=== PATIENT | female | born 1955 | race American Indian/Alaskan Native ===

== ENCOUNTER 2016-03-24 08:05 | Day surgery (SDC) | payer MEDICARE ==
--- NOTE | 2016-03-24 09:30 | Anesthesia Consultation ---
Anesthesia Consult and Med Hx Date of service: 03/24/16 - Airway Anesthetic Teeth Evaluation: Good ROM Head & Neck: Adequate Mental/Hyoid Distance: Adequate Mallampati Class: Class II Intubation Access Assessment: Good - Pulmonary Exam CTA: Yes - Cardiac Exam Cardiac Exam: RRR - Pre-Operative Health Status ASA Pre-Surgery Classification: ASA2, ASA3 - Pulmonary Hx Smoking: Yes (QUIT 5 YRS AGO) Hx Asthma: Yes COPD: Yes Hx Pneumonia: Yes Hx Sleep Apnea: Yes - Cardiovascular System Hx Hypertension: Yes Hx Coronary Artery Disease: No Hx Heart Attack/AMI: No Hx Angina: No Hx Percutaneous Transluminal Coronary Angioplasty (PTCA): No Hx Pacemaker: No Hx Internal Defibrillator: No Hx Valvular Heart Disease: No Hx Heart Murmur: No Hx Peripheral Vascular Disease: No - Central Nervous System CVA: Yes (1999) Hx Psychiatric Problems: Yes - Endocrine Hx End Stage Renal Disease: No - Other Systems Hx Cancer: No
[2016-03-24] MEDS ORDERED: TETRACAINE 0.5% OS PRN (09:41)
[2016-03-24] MEDS: AK-Dilate OS SCH ×3 (09:51→10:03)
[2016-03-24] MEDS: MYDRIACYL OS SCH ×3 (09:51→10:02)
[2016-03-24] MEDS: VIGAMOX OS SCH ×3 (09:51→10:02)
[2016-03-24] MEDS ORDERED: VERSED ONE (11:57)
[2016-03-24] MEDS ORDERED: SUBLIMAZE ONE (11:57)
[2016-03-24] MEDS ORDERED: ADRENALINE P/F IV ONE (12:28)
--- NOTE | 2016-03-24 12:34 | Operative Report ---
Operative Report Operative Report: PATIENT'S NAME: DATE OF : DATE OF SURGERY: 03/24/2016 PREOPERATIVE DIAGNOSIS: Cataract left eye POSTOPERATIVE DIAGNOSIS: Same OPERATIVE PROCEDURE: Phacoemulsification with intraocular lens implantation, left eye SURGEON: Ame Valentin M.D. RADIOGRAPHY TECHNICIAN SURGEON: Nicole Lens: [id number] 17.0 D ANESTHESIA: Monitored anesthesia care in combination with topical and intracameral anesthesia because of the established specific risk of reflux, arrhythmias, or anxiety attacks associated with ocular manipulation, as well as the difficulty of the rn primary care to manage such potentially catastrophic events while simultaneously attempting to complete the surgical procedure and was deemed necessary for the patient's safety to have an Golf Tournament Consultant present during the procedure whenever possible. An Golf Tournament Consultant was utilized to regulate the intravenous sedation of the patient so the patient was cooperative yet not asleep in order for the patient to successfully maintain fixation of the eye on the operating light of the microscope. COMPLICATIONS: No surgical complications No blood loss. ALLERGIES: MOY inhibitor is instrument; gabapentin PROGNOSIS: Excellent INDICATIONS FOR SURGERY: The patient is undergoing surgery in the hopes of eliminating or improving these visual difficulties. PROCEDURE: After arriving at the surgery center, the patient was given topical anesthetic and dilating drops, as noted in the record. The patient was then taken into the operating room and given more anesthetic drops. The eyelids, lashes, and lid margins were scrubbed with Betadine solution, and the patient was draped. The Nurse Golf Tournament Consultant administered IV sedation and monitored the patient during the procedure. The eye was then fixated with a 0.12, and a stab incision was made in the peripheral clear cornea into the anterior chamber. This was made on my left side. Viscoelastic was next used to fill the anterior chamber. The eye was once again fixated with the 0.12 forceps and a keratome was used make an incision in clear cornea peripherally on my right hand side temporally. The capsule forceps were used to open the central anterior capsule and then make a continuous round capsulotomy. Hydrodissection was carried out utilizing a cannula and balanced salt solution to delineate the cortical material from the capsule and the nucleus from the cortical material. The phaco tip was introduced into the eye and used to remove the anterior cortical material in the area of the capsulotomy. Then the phaco tip was buried into the nucleus, and a chopping instrument was introduced into the eye and used to provide countertraction in the nucleus between this instrument and the phaco tip fracturing the nucleus. This procedure was repeated multiple times, providing multiple small segments of the lens, and then the phaco tip was used to remove each of these segments. An I/A tip was then used to remove the remaining cortex. The anterior chamber was refilled with viscoelastic. An one-piece, acrylic intraocular lens was then placed into an inserting cartridge. The tip of the inserting cartridge was introduced into the keratome incision and into the anterior chamber. The implant was gently advanced through the cartridge and into the eye, where it unfolded, and both haptics were placed in the capsular bag, where it centered nicely and appeared to be well fixated. After placement of the intraocular lens, the I~and~A handpiece was placed back into the eye and used to remove the viscoelastic, including viscoelastic that was behind the optic of the intraocular lens. The anterior chamber was then filled with balanced salt solution, and hydration of the wound was used to cause swelling of the wound and more appropriate watertight closure. When the wound was found to be firm, the patient was asked to comment on how bright the light was. If there was no light perception at all or if the light was substantially dimmer than during the rest of the surgery, the amount of fluid in the eye was decompressed to lower the intraocular pressure until the patient could see the bright light again. This was done to avoid any damage or decreased blood flow to the optic nerve. MEDICATIONS APPLIED AT END OF SURGERY: One drop of Pred Forte and Vigamox The patient was given a shield to wear at night and was instructed not to rub or push on the eye. DISCHARGE SUMMARY: The patient was released in stable condition. The patient and those with the patient were given a written sheet of postoperative instructions and counseling on any abnormal laboratory studies. The patient is to see us tomorrow for follow-up in the office and is to call immediately for any difficulties. Ame Valentin M.D. Date
--- NOTE | 2016-03-24 12:35 | Short Stay Summary ---
Short Stay Documentation Date of service: 03/24/16 - History H&P: obtained from office - Allergies and Medications Current Medications: Allergies MOY Inhibitors Allergy (Verified 06/13/13 02:30) Angioedema azithromycin [From Zithromax Z-Nick] Allergy (Verified 11/24/13 15:23) Angioedema gabapentin Adverse Reaction (Verified 10/15/14 20:40) Unknown Home Medications Medication Instructions Recorded Confirmed Last Taken Type Insulin Detemir [Levemir Flexpen] 70 units SUB-Q HS 08/31/13 03/24/16 03/23/16 21:00 History Carvedilol [Coreg] 25 mg PO Q12HR #60 tablet 10/16/14 03/24/16 03/24/16 07:00 Rx Aspirin [Aspirin BABY CHEW TAB] 81 mg PO QDAY tab.chew 01/23/15 03/24/16 11:00 Rx Ipratropium/Albuterol Sulfate 1 ampul IH TIDRT ampul.neb 01/23/15 03/21/1611/27 Rx [Duoneb 0.5 mg-3 mg/3 ml Soln] Potassium Chloride [K-Dur] 20 meq PO QDAY tablet 01/23/15 03/21/16 03/21/16 Rx Torsemide [Demadex] 60 mg PO DAILY tablet 01/23/15 03/24/16 03/23/16 21:00 Rx amLODIPine [Norvasc] 10 mg PO DAILY tablet 01/23/15 03/24/16 03/24/16 07:00 Rx oxyCODONE /ACETAMINOPHEN [Percocet 1 tab PO Q6H PRN #75 tablet 01/23/1503/23/16 19:00 Rx 5/325 mg] Atorvastatin Calcium [Lipitor] 40 mg PO DAILY 03/21/16 03/24/16 03/23/16 11:00 History Effexor 75 mg PO DAILY 03/21/16 03/24/16 03/24/16 07:00 History Insulin Aspart Prot/Aspart 50 units SUB-Q BIDDIAB 03/21/16 03/24/16 03/23/16 21: 00 History [NovoLOG Mix 70/30 VIAL] Meclizine [Antivert] 25 mg PO PRN PRN 03/21/16 03/21/16 2 Weeks Ago History Active Medications Moxifloxacin HCl (Vigamox) 1 drops OS Q5MIN [facility] Stop: 03/24/16 16:00 Last Admin: 03/24/16 10:02 Dose: 1 drops Phenylephrine HCl (Ak-Dilate) 1 drops OS Q5MIN [facility] Stop: 03/24/16 16:00 Last Admin: 03/24/16 10:03 Dose: 1 drops Prednisolone Acetate (Pred Forte 1%) 1 drops OS QID [facility] Tetracaine HCl (Tetracaine 0.5%) 1 drops OS Q5M PRN PRN Reason: Pain Stop: 03/24/16 23:59 Last Admin: 03/24/16 09:50 Dose: 1 drops Tropicamide (Mydriacyl) 1 drops OS Q5MIN [facility] Stop: 03/24/16 16:00 Last Admin: 03/24/16 10:02 Dose: 1 drops - Brief post op/procedure progress note Date of procedure: 03/24/16 Pre-op diagnosis: cataract left eye Post-op diagnosis: same Procedure: Phacoemulsification with intraocular lens insertion left eye Anesthesia: MAC Surgeon: MANUEL PRABHAKAR Estimated blood loss: none Pathology: none Condition: stable - Disposition Condition at discharge: Fair Disposition: DISCHARGED TO HOME OR SELFCARE - Discharge Diagnoses (1) Cataract Status: Acute
[2016-03-24 13:39] VITALS: BP 143/67
[2016-03-24] MEDS ORDERED: PRED FORTE 1% OS SCH (14:00)
== END 2016-03-24 13:56 | disposition home or self-care (01) ==
LOC: OR 08:05
DX: E11.36 Type 2 diabetes mellitus with diabetic cataract (principal); I11.0 Hypertensive heart disease with heart failure; J45.909 Unspecified asthma, uncomplicated; J44.9 Chronic obstructive pulmonary disease, unspecified; E78.00 Pure hypercholesterolemia, unspecified; E11.39 Type 2 diabetes mellitus with other diabetic ophthalmic complication; H40.9 Unspecified glaucoma; G47.30 Sleep apnea, unspecified; M19.019 Primary osteoarthritis, unspecified shoulder; M16.10 Unilateral primary osteoarthritis, unspecified hip; Z87.891 Personal history of nicotine dependence; Z87.01 Personal history of pneumonia (recurrent); Z86.73 Personal history of transient ischemic attack (TIA), and cerebral infarction without residual deficits; Z99.81 Dependence on supplemental oxygen
CPT/HCPCS: 66984; 82962; J0171; J2250; J3010; V2632

== ENCOUNTER 2016-07-16 15:10 | Inpatient (IN) | payer MEDICARE ==
[2016-07-16 16:15] LABS: Hemoglobin 9.8 gm/dl (10.1-14.3); Mean Corpuscular HGB Conc 31 % (30-34); Mean Corpuscular Hemoglobin 27 pg (28-32); Mean Corpuscular Volume 87 fl (79-97); Platelet Count 352 K/mm3 (140-440); Red Blood Count 3.66 M/mm3 (3.65-5.03); Red Cell Distribution Width 14.6 % (13.2-15.2)
[2016-07-16 16:28] LABS: Anion Gap 17 mmol/L; BUN/Creatinine Ratio 8.88; Blood Urea Nitrogen 8 mg/dL (7-17); Calcium 8.9 mg/dL (8.4-10.2); Carbon Dioxide 32 mmol/L (22-30); Chloride 96.9 mmol/L (98-107); Glucose 273 mg/dL (65-100); Potassium 4.1 mmol/L (3.6-5.0); Sodium 142 mmol/L (137-145); White Blood Count 26.2 K/mm3 (4.5-11.0)
--- NOTE | 2016-07-16 16:40 | Emergency Department Report ---
ED General Adult HPI - General Chief complaint: Chest Pain Stated complaint: CHEST PAIN Time Seen by Provider: 07/16/16 16:36 Source: patient, EMS, RN notes reviewed, old records reviewed Mode of arrival: Stretcher Limitations: Physical Limitation - History of Present Illness Initial comments: This is a 61-year-old female. She is previously unknown to me. Primary care Dr.: Benji Cardiology: Dr Wright Pulmonology: Anne DANIELS Past medical history includes CHF, hypertension, COPD, diabetes, obstructive sleep apnea, on home oxygen, on CPAP. Ejection fraction 55-60% on recent echocardiogram. The patient presents to the ER with chest pain. The chest pain is central. The patient reports that it radiates down the right arm. It is described as pressure-like in nature. Patient admits to chronic cough, chronic reconstruction. There is no leg pain. Chronic leg swelling which is not new, worsening or different. No recent trips greater than 4 hours. No recent hospitalizations. The patient endorses that she essentially had an unintentional weight loss. -: Gradual Location: chest Radiation: extremity Severity scale (0 -10): 7 Quality: aching Consistency: intermittent Improves with: rest Worsens with: movement Associated Symptoms: chest pain, cough, headaches, weakness - Related Data Home Medications Medication Instructions Recorded Confirmed Last Taken Latanoprost 1 drop OU Q4H 05/09/16 05/09/16 Unknown Nepafenac [Ilevro 0.3%] 1 drop OD Q4H 05/09/16 05/09/16 Unknown Previous Rx's Medication Instructions Recorded Last Taken Type Acetaminophen [Acetaminophen TAB] 650 mg PO Q4H PRN #10 tablet 05/11/16 Unknown Rx Amoxicillin/K Clav Tab [Augmentin 1 each PO Q12HR #10 tablet 05/11/16 Unknown Rx 875MG TAB] Arformoterol Nebu [Brovana Nebu] 15 mcg IH Q12HRT #30 unit 05/11/16 Unknown Rx Aspirin [Aspirin BABY CHEW TAB] 81 mg PO QDAY #30 tab.chew 05/11/16 05/06/16 Rx AtorvaSTATin [Lipitor] 40 mg PO DAILY #30 tablet 05/11/16 Unknown Rx Budesonide [Pulmicort Respules] 1 mg IH Q12HRT #30 nebu 05/11/16 Unknown Rx Carvedilol [Coreg] 25 mg PO Q12HR #60 tablet 05/11/16 Unknown Rx Fluconazole [Diflucan TAB] 100 mg PO ONCE PRN #2 tablet 05/11/16 Unknown Rx HYDROcodone/APAP 10-325 [[place] 1 each PO Q6H PRN #30 tablet 05/11/16 Unknown Rx 10-325 mg TAB] Insulin Detemir [Levemir] 40 units SUB-Q QAMDIAB #30 day 05/11/16 Unknown Rx Insulin Detemir [Levemir] 45 units SUB-Q QHS #30 day 05/11/16 Unknown Rx Ipratropium/Albuterol Sulfate 1 ampul IH Q6HRT #30 ampul.neb 05/11/16 Unknown Rx [Duoneb 0.5 mg-3 mg/3 ml Soln] Ipratropium/Albuterol Sulfate 1 ampul IH TIDRT #30 ampul.neb 05/11/16 05/06/16 Rx [Duoneb 0.5 mg-3 mg/3 ml Soln] Lidocaine Topical 5% [Xylocaine 1 applic TP TID PRN #1 tube 05/11/16 Unknown Rx Topical 5%] Moxifloxacin HCl [Vigamox 0.5%] 1 drop OD Q4H #1 05/11/16 Unknown Rx Nepafenac 0.1% [Nevanac] 1 drops OD Q4H bottle 05/11/16 Unknown Rx Pregabalin [Lyrica] 50 mg PO BID #30 capsule 05/11/16 Unknown Rx Torsemide [Demadex] 60 mg PO QAM tablet 05/11/16 Unknown Rx Venlafaxine [Effexor] 75 mg PO DAILY #30 tablet 05/11/16 Unknown Rx Zolpidem [Ambien] 5 mg PO QHS PRN #30 tablet 05/11/16 Unknown Rx amLODIPine [Norvasc] 10 mg PO DAILY #30 tablet 05/11/16 Unknown Rx guaiFENesin DM [Robitussin Dm] 10 ml PO Q6H PRN #30 oral.liqd 05/11/16 Unknown Rx methylPREDNISolone [Medrol Dose 1 mg PO DAILY #1 pack 05/11/16 Unknown Rx Nick] oxyCODONE /ACETAMINOPHEN [Percocet 1 tab PO Q6H PRN #30 tablet 05/11/16 Unknown Rx 5/325 mg] prednisoLONE ACETATE 1% [Pred 1 drops OD QID bottle 05/11/16 Unknown Rx Forte 1%] Allergies Allergy/AdvReac Type Severity Reaction Status Date / Time MOY Inhibitors Allergy Angioedema Verified 04/20/16 16:35 azithromycin Allergy Angioedema Verified 04/20/16 16:35 [From Zithromax Z-Nick] gabapentin AdvReac Unknown Verified 04/20/16 16:35 ED Review of Systems ROS: Stated complaint: CHEST PAIN Other details as noted in HPI Constitutional: malaise, weakness Eyes: denies: vision change Respiratory: shortness of breath, wheezing Cardiovascular: chest pain, dyspnea on exertion Gastrointestinal: denies: vomiting Genitourinary: as per HPI Musculoskeletal: arthralgia, myalgia Skin: denies: lesions Neurological: weakness ED Past Medical Hx - Past Medical History Hx Hypertension: Yes Hx Heart Attack/AMI: No Hx Congestive Heart Failure: Yes Hx Diabetes: Yes Hx Deep Vein Thrombosis: No Hx Pulmonary Embolism: No Hx Arthritis: Yes (shoulders, hips, arms) Hx Kidney Stones: Yes Hx Asthma: Yes Hx COPD: Yes Hx Tuberculosis: Yes (at age 10) Hx HIV: No Additional medical history: VERTIGO/ /MENIERES DISEASE / SLEEP APNEA. neuropathy. on home o2, 2L via nasal cannula - Surgical History Hx Coronary Stent: No Hx Pacemaker: No Hx Internal Defibrillator: No Additional Surgical History: Renal stent - Social History Smoking Status: Never Smoker Substance Use Type: None - Medications Home Medications: Home Medications Medication Instructions Recorded Confirmed Last Taken Type Latanoprost 1 drop OU Q4H 05/09/16 05/09/16 Unknown History Nepafenac [Ilevro 0.3%] 1 drop OD Q4H 05/09/16 05/09/16 Unknown History Acetaminophen [Acetaminophen TAB] 650 mg PO Q4H PRN #10 tablet 05/11/16 Unknown Rx Amoxicillin/K Clav Tab [Augmentin 1 each PO Q12HR #10 tablet 05/11/16 Unknown Rx 875MG TAB] Arformoterol Nebu [Brovana Nebu] 15 mcg IH Q12HRT #30 unit 05/11/16 Unknown Rx Aspirin [Aspirin BABY CHEW TAB] 81 mg PO QDAY #30 tab.chew 05/11/16 05/07/16 Rx AtorvaSTATin [Lipitor] 40 mg PO DAILY #30 tablet 05/11/16 Unknown Rx Budesonide [Pulmicort Respules] 1 mg IH Q12HRT #30 nebu 05/11/16 Unknown Rx Carvedilol [Coreg] 25 mg PO Q12HR #60 tablet 05/11/16 Unknown Rx Fluconazole [Diflucan TAB] 100 mg PO ONCE PRN #2 tablet 05/11/16 Unknown Rx HYDROcodone/APAP 10-325 [[place] 1 each PO Q6H PRN #30 tablet 05/11/16 Unknown Rx 10-325 mg TAB] Insulin Detemir [Levemir] 40 units SUB-Q QAMDIAB #30 day 05/11/16 Unknown Rx Insulin Detemir [Levemir] 45 units SUB-Q QHS #30 day 05/11/16 Unknown Rx Ipratropium/Albuterol Sulfate 1 ampul IH Q6HRT #30 ampul.neb 05/11/16 Unknown Rx [Duoneb 0.5 mg-3 mg/3 ml Soln] Ipratropium/Albuterol Sulfate 1 ampul IH TIDRT #30 ampul.neb 05/11/16 05/07/16 05/06/16 Rx [Duoneb 0.5 mg-3 mg/3 ml Soln] Lidocaine Topical 5% [Xylocaine 1 applic TP TID PRN #1 tube 05/11/16 Unknown Rx Topical 5%] Moxifloxacin HCl [Vigamox 0.5%] 1 drop OD Q4H #1 05/11/16 05/09/16 Unknown Rx Nepafenac 0.1% [Nevanac] 1 drops OD Q4H bottle 05/11/16 Unknown Rx Pregabalin [Lyrica] 50 mg PO BID #30 capsule 05/11/16 Unknown Rx Torsemide [Demadex] 60 mg PO QAM tablet 05/11/16 Unknown Rx Venlafaxine [Effexor] 75 mg PO DAILY #30 tablet 05/11/16 Unknown Rx Zolpidem [Ambien] 5 mg PO QHS PRN #30 tablet 05/11/16 Unknown Rx amLODIPine [Norvasc] 10 mg PO DAILY #30 tablet 05/11/16 Unknown Rx guaiFENesin DM [Robitussin Dm] 10 ml PO Q6H PRN #30 oral.liqd 05/11/16 Unknown Rx methylPREDNISolone [Medrol Dose 1 mg PO DAILY #1 pack 05/11/16 Unknown Rx Nick] oxyCODONE /ACETAMINOPHEN [Percocet 1 tab PO Q6H PRN #30 tablet 05/11/16 Unknown Rx 5/325 mg] prednisoLONE ACETATE 1% [Pred 1 drops OD QID bottle 05/11/16 Unknown Rx Forte 1%] ED Physical Exam - General Limitations: No Limitations General appearance: alert, in no apparent distress, obese - Head Head exam: Present: atraumatic, normocephalic - Eye Eye exam: Present: normal appearance, EOMI. Absent: nystagmus - ENT ENT exam: Present: normal exam, normal orophraynx, mucous membranes moist, normal external ear exam - Neck Neck exam: Present: normal inspection, full ROM. Absent: tenderness, meningismus - Respiratory Respiratory exam: Present: rhonchi. Absent: respiratory distress - Cardiovascular Cardiovascular Exam: Present: normal rhythm, tachycardia, normal heart sounds. Absent: systolic murmur, diastolic murmur, rubs, gallop - GI/Abdominal GI/Abdominal exam: Present: soft, normal bowel sounds. Absent: distended, tenderness, guarding, rebound, rigid, pulsatile mass - Extremities Exam Extremities exam: Present: normal inspection, normal capillary refill, pedal edema. Absent: calf tenderness - Back Exam Back exam: Present: normal inspection, full ROM. Absent: tenderness, CVA tenderness (R), CVA tenderness (L), muscle spasm, paraspinal tenderness, vertebral tenderness - Neurological Exam Neurological exam: Present: alert, oriented X3, other (Extraocular movements intact. Tongue midline. No facial droop. Facial sensation intact to light touch in the V1, V2, V3 distribution bilaterally. 5 and 5 strength in 4 extremities.. Sensation is intact to light touch in 4 extremities.). Absent: motor sensory deficit - Psychiatric Psychiatric exam: Present: normal affect, normal mood - Skin Skin exam: Present: warm, dry, intact, normal color. Absent: rash ED Course Vital Signs 07/16/16 07/16/16 07/16/16 15:33 19:21 19:39 Temperature 98.1 F Pulse Rate 109 H Pulse Rate [ 87 Anterior Bilateral] Respiratory 22 20 Rate Respiratory 18 Rate [Anterior Bilateral] Blood Pressure 121/65 Blood Pressure 121/65 [Left] O2 Sat by Pulse 95 97 98 Oximetry 07/16/16 07/16/16 07/16/16 20:00 21:31 22:00 Temperature 97.9 F Pulse Rate 94 H Pulse Rate [ 90 Anterior Bilateral] Respiratory 16 18 Rate Respiratory 18 Rate [Anterior Bilateral] Blood Pressure Blood Pressure 130/96 [Left] O2 Sat by Pulse 98 Oximetry - Reevaluation(s) Reevaluation #1: 07/16/16 18:17 differential diagnosis: COPD exacerbation, pneumonia, congestive heart failure, pulmonary hypertension, acute coronary syndrome, pleural effusion , pericardial effusion, pericarditis Assessment and plan: 61-year-old female with chest pain, chronic cough, chronic shortness of breath, no pulmonary embolus or DVT risk factors, low risk by well' s criteria, x-ray suggests pneumonia. Case is presented to the Hospital physician, Dr. Gray who accepts the patient to his service. He is going to order antibiotics. The patient is treated empirically with albuterol, Atrovent , steroids, ketorolac for pain. ED Medical Decision Making - Lab Data Result diagrams: 07/16/16 15:58 07/16/16 15:58 Vital Signs 07/16/16 15:33 Temperature 98.1 F Pulse Rate 109 H Respiratory 22 Rate Blood Pressure 121/65 Blood Pressure 121/65 [Left] O2 Sat by Pulse 95 Oximetry Lab Results 07/16/16 07/16/16 07/16/16 Range/Units 15:58 15:58 17:02 WBC 26.2 H (4.5-11.0) K/mm3 RBC 3.66 (3.65-5.03) M/mm3 Hgb 9.8 L (10.1-14.3) gm/dl Hct 32.0 (30.3-42.9) % MCV 87 (79-97) fl MCH 27 L (28-32) pg MCHC 31 (30-34) % RDW 14.6 (13.2-15.2) % Plt Count 352 (140-440) K/mm3 Add Manual Diff Complete Total Counted 200 Seg Neuts % (Manual) 75.5 H (40.0-70.0) % Band Neutrophils % 11.0 % Lymphocytes % (Manual) 7.5 L (13.4-35.0) % Reactive Lymphs % (Man) 0 % Monocytes % (Manual) 4.5 (0.0-7.3) % Eosinophils % (Manual) 1.0 (0.0-4.3) % Basophils % (Manual) 0.5 (0.0-1.8) % Metamyelocytes % 0 % Myelocytes % 0 % Promyelocytes % 0 % Blast Cells % 0 % Nucleated RBC % Not Reportable Seg Neutrophils # Man 19.8 H (1.8-7.7) K/mm3 Band Neutrophils # 2.9 K/mm3 Lymphocytes # (Manual) 2.0 (1.2-5.4) K/mm3 Abs React Lymphs (Man) 0.0 K/mm3 Monocytes # (Manual) 1.2 H (0.0-0.8) K/mm3 Eosinophils # (Manual) 0.3 (0.0-0.4) K/mm3 Basophils # (Manual) 0.1 (0.0-0.1) K/mm3 Metamyelocytes # 0.0 K/mm3 Myelocytes # 0.0 K/mm3 Promyelocytes # 0.0 K/mm3 Blast Cells # 0.0 K/mm3 WBC Morphology Not Reportable Hypersegmented Neuts Not Reportable Hyposegmented Neuts Not Reportable Hypogranular Neuts Not Reportable Smudge Cells Not Reportable Toxic Granulation Not Reportable Toxic Vacuolation Not Reportable Dohle Bodies Not Reportable Pelger-Huet Anomaly Not Reportable Jasmyn Rods Not Reportable Platelet Estimate Cons Clumped Platelets Not Reportable Plt Clumps, EDTA Not Reportable Large Platelets Not Reportable Giant Platelets Few Platelet Satelliting Not Reportable Plt Morphology Comment Not Reportable RBC Morphology Not Reportable Dimorphic RBCs Not Reportable Polychromasia Not Reportable Hypochromasia 1+ Poikilocytosis Not Reportable Anisocytosis 1+ Microcytosis Not Reportable Macrocytosis Not Reportable Spherocytes Not Reportable Pappenheimer Bodies Not Reportable Sickle Cells Not Reportable Target Cells Not Reportable Tear Drop Cells Not Reportable Ovalocytes 1+ Helmet Cells Not Reportable Zaragoza-Pelzer Bodies Not Reportable Dixon Rings Not Reportable Mariela Cells Not Reportable Bite Cells Not Reportable Crenated Cell Not Reportable Elliptocytes Not Reportable Acanthocytes (Spur) Not Reportable Rouleaux Not Reportable Hemoglobin C Crystals Not Reportable Schistocytes Not Reportable Malaria parasites Not Reportable Papito Bodies Not Reportable Hem Pathologist Commnt No PT (12.2-14.9) Sec. INR (0.87-1.13) Sodium 142 (137-145) mmol/L Potassium 4.1 (3.6-5.0) mmol/L Chloride 96.9 L (98-107) mmol/L Carbon Dioxide 32 H (22-30) mmol/L Anion Gap 17 mmol/L BUN 8 (7-17) mg/dL Creatinine 0.9 (0.7-1.2) mg/dL Estimated GFR > 60 ml/min BUN/Creatinine Ratio 8.88 % Glucose 273 H (65-100) mg/dL Calcium 8.9 (8.4-10.2) mg/dL Troponin T < 0.010 < 0.010 (0.00-0.029) ng/mL NT-Pro-B Natriuret Pep (0-900) pg/mL 07/16/16 07/16/16 Range/Units 17:02 17:02 WBC (4.5-11.0) K/mm3 RBC (3.65-5.03) M/mm3 Hgb (10.1-14.3) gm/dl Hct (30.3-42.9) % MCV (79-97) fl MCH (28-32) pg MCHC (30-34) % RDW (13.2-15.2) % Plt Count (140-440) K/mm3 Add Manual Diff Total Counted Seg Neuts % (Manual) (40.0-70.0) % Band Neutrophils % % Lymphocytes % (Manual) (13.4-35.0) % Reactive Lymphs % (Man) % Monocytes % (Manual) (0.0-7.3) % Eosinophils % (Manual) (0.0-4.3) % Basophils % (Manual) (0.0-1.8) % Metamyelocytes % % Myelocytes % % Promyelocytes % % Blast Cells % % Nucleated RBC % Seg Neutrophils # Man (1.8-7.7) K/mm3 Band Neutrophils # K/mm3 Lymphocytes # (Manual) (1.2-5.4) K/mm3 Abs React Lymphs (Man) K/mm3 Monocytes # (Manual) (0.0-0.8) K/mm3 Eosinophils # (Manual) (0.0-0.4) K/mm3 Basophils # (Manual) (0.0-0.1) K/mm3 Metamyelocytes # K/mm3 Myelocytes # K/mm3 Promyelocytes # K/mm3 Blast Cells # K/mm3 WBC Morphology Hypersegmented Neuts Hyposegmented Neuts Hypogranular Neuts Smudge Cells Toxic Granulation Toxic Vacuolation Dohle Bodies Pelger-Huet Anomaly Jasmyn Rods Platelet Estimate Clumped Platelets Plt Clumps, EDTA Large Platelets Giant Platelets Platelet Satelliting Plt Morphology Comment RBC Morphology Dimorphic RBCs Polychromasia Hypochromasia Poikilocytosis Anisocytosis Microcytosis Macrocytosis Spherocytes Pappenheimer Bodies Sickle Cells Target Cells Tear Drop Cells Ovalocytes Helmet Cells Zaragoza-Pelzer Bodies Dixon Rings Mariela Cells Bite Cells Crenated Cell Elliptocytes Acanthocytes (Spur) Rouleaux Hemoglobin C Crystals Schistocytes Malaria parasites Papito Bodies Hem Pathologist Commnt PT 13.6 (12.2-14.9) Sec. INR 1.05 (0.87-1.13) Sodium (137-145) mmol/L Potassium (3.6-5.0) mmol/L Chloride (98-107) mmol/L Carbon Dioxide (22-30) mmol/L Anion Gap mmol/L BUN (7-17) mg/dL Creatinine (0.7-1.2) mg/dL Estimated GFR ml/min BUN/Creatinine Ratio % Glucose (65-100) mg/dL Calcium (8.4-10.2) mg/dL Troponin T (0.00-0.029) ng/mL NT-Pro-B Natriuret Pep 629.7 (0-900) pg/mL - EKG Data -: EKG Interpreted by In EKG shows normal: sinus rhythm Rate: normal - EKG Data 07/16/16 19:08 Normal sinus, normal axis, QTC 494 ms, not consistent with STEMI, appears unchanged compared to prior EKG from April 2016. - Radiology Data Radiology results: report reviewed, image reviewed X-ray of the chest: Cardiomegaly, atelectasis versus early infiltrate in the retrocardiac region the left lung bases. Increased opacity in the retrocardiac region. Critical care attestation.: If time is entered above; I have spent that time in minutes in the direct care of this critically ill patient, excluding procedure time. ED Disposition Clinical Impression: Chest pain, COPD (chronic obstructive pulmonary disease), COPD with acute exacerbation, Chest wall pain, Pulmonary vascular congestion Disposition: OP ADMITTED IP TO THIS HOSP Is pt being admited?: Yes Does the pt Need Aspirin: Yes Condition: Good
[2016-07-16] MEDS ORDERED: ATROVENT IH ONE ×2 (16:54→19:28)
[2016-07-16] MEDS ORDERED: PROVENTIL IH ONE ×2 (16:54→19:28)
[2016-07-16] MEDS ORDERED: MAGNESIUM SULFATE 2GM/50ML 2 GM/50 ML BAG IV ONE (16:54)
[2016-07-16] MEDS ORDERED: NITROSTAT SL PRN (16:54)
[2016-07-16] MEDS ORDERED: TORADOL IV ONE (16:54)
--- NOTE | 2016-07-16 17:15 | XRay Report ---
FINAL REPORT EXAM: XR CHEST 1V AP HISTORY: cp TECHNIQUE: Single-view chest PRIORS: None. FINDINGS: Lung volumes are diminished. This exaggerates cardiac silhouette. There is increased opacity in the retrocardiac region of the left lung base. No acute osseous abnormality is identified. IMPRESSION: 1. Mild atelectasis versus early infiltrate in the retrocardiac region of the left lung base. The appearance may be exaggerated by diminished lung volumes.
[2016-07-16 17:16] LABS: Basophils % (Manual) 0.5 % (0.0-1.8); Blastocytes % (Manual) 0 %
[2016-07-16 17:17] LABS: Anisocytosis 1+; Giant Platelets Few; Hypochromasia 1+; Ovalocytes 1+
[2016-07-16 17:18] LABS: Diff Status Complete; Platelet Estimate Cons
--- NOTE | 2016-07-16 17:31 | History and Physical Report ---
History of Present Illness Chief complaint: My chest hurts History of present illness: 61 YO Female with MO, HTN, CHF, DM, CAD S/P CABG, Metabolic Syndrome, MO,MALATHI on CPAP,COPD, Asthma, Chronic Respiratory Failure presents to ED for evaluation. Pt states that she has been experiencing chest pain for the past 1 day with worsening symptoms over the past 6 hours. Pain is 7/10, constant, substernal, nonradiating, not worsened with exertion, or relieved with rest, radiates down the right arm. Pt denies fever, chills, Palpitations, NVD, prolonged immobility/ travel, individual/family history of DVT/PE, hemoptysis, productive cough, calf pain, unilateral leg pain, productive cough, or recent ill contacts. Primary care Dr.: Benji Cardiology: Dr Wright Pulmonology: Anne DANIELS Past History Past Medical History: CAD, diabetes, heart failure, hypertension Past Surgical History: Other (renal stent) Social history: . denies: smoking, alcohol abuse, prescription drug abuse Family history: diabetes, hypertension Medications and Allergies Allergies Allergy/AdvReac Type Severity Reaction Status Date / Time MOY Inhibitors Allergy Angioedema Verified 04/20/16 16:35 azithromycin Allergy Angioedema Verified 04/20/16 16:35 [From Zithromax Z-Nick] gabapentin AdvReac Unknown Verified 04/20/16 16:35 Home Medications Medication Instructions Recorded Confirmed Last Taken Type Latanoprost 1 drop OU Q4H 05/09/16 05/09/16 Unknown History Nepafenac [Ilevro 0.3%] 1 drop OD Q4H 05/09/16 05/09/16 Unknown History Acetaminophen [Acetaminophen TAB] 650 mg PO Q4H PRN #10 tablet 05/11/16 Unknown Rx Amoxicillin/K Clav Tab [Augmentin 1 each PO Q12HR #10 tablet 05/11/16 Unknown Rx 875MG TAB] Arformoterol Nebu [Brovana Nebu] 15 mcg IH Q12HRT #30 unit 05/11/16 Unknown Rx Aspirin [Aspirin BABY CHEW TAB] 81 mg PO QDAY #30 tab.chew 05/11/16 05/07/16 Rx AtorvaSTATin [Lipitor] 40 mg PO DAILY #30 tablet 05/11/16 Unknown Rx Budesonide [Pulmicort Respules] 1 mg IH Q12HRT #30 nebu 05/11/16 Unknown Rx Carvedilol [Coreg] 25 mg PO Q12HR #60 tablet 05/11/16 Unknown Rx Fluconazole [Diflucan TAB] 100 mg PO ONCE PRN #2 tablet 05/11/16 Unknown Rx HYDROcodone/APAP 10-325 [[place] 1 each PO Q6H PRN #30 tablet 05/11/16 Unknown Rx 10-325 mg TAB] Insulin Detemir [Levemir] 40 units SUB-Q QAMDIAB #30 day 05/11/16 Unknown Rx Insulin Detemir [Levemir] 45 units SUB-Q QHS #30 day 05/11/16 Unknown Rx Ipratropium/Albuterol Sulfate 1 ampul IH Q6HRT #30 ampul.neb 05/11/16 Unknown Rx [Duoneb 0.5 mg-3 mg/3 ml Soln] Ipratropium/Albuterol Sulfate 1 ampul IH TIDRT #30 ampul.neb 05/11/16 05/07/16 05/06/16 Rx [Duoneb 0.5 mg-3 mg/3 ml Soln] Lidocaine Topical 5% [Xylocaine 1 applic TP TID PRN #1 tube 05/11/16 Unknown Rx Topical 5%] Moxifloxacin HCl [Vigamox 0.5%] 1 drop OD Q4H #1 05/11/16 05/09/16 Unknown Rx Nepafenac 0.1% [Nevanac] 1 drops OD Q4H bottle 05/11/16 Unknown Rx Pregabalin [Lyrica] 50 mg PO BID #30 capsule 05/11/16 Unknown Rx Torsemide [Demadex] 60 mg PO QAM tablet 05/11/16 Unknown Rx Venlafaxine [Effexor] 75 mg PO DAILY #30 tablet 05/11/16 Unknown Rx Zolpidem [Ambien] 5 mg PO QHS PRN #30 tablet 05/11/16 Unknown Rx amLODIPine [Norvasc] 10 mg PO DAILY #30 tablet 05/11/16 Unknown Rx guaiFENesin DM [Robitussin Dm] 10 ml PO Q6H PRN #30 oral.liqd 05/11/16 Unknown Rx methylPREDNISolone [Medrol Dose 1 mg PO DAILY #1 pack 05/11/16 Unknown Rx Nick] oxyCODONE /ACETAMINOPHEN [Percocet 1 tab PO Q6H PRN #30 tablet 05/11/16 Unknown Rx 5/325 mg] prednisoLONE ACETATE 1% [Pred 1 drops OD QID bottle 05/11/16 Unknown Rx Forte 1%] Active Meds: Active Medications Nitroglycerin (Nitrostat) 0.4 mg SL .Q5MIN PRN PRN Reason: Chest Pain Review of Systems All systems: negative Cardiovascular: chest pain Exam - Constitutional Vitals: Temp Pulse Resp BP Pulse Ox 98.1 F 109 H 22 121/65 95 07/16/16 15:33 07/16/16 15:33 07/16/16 15:33 07/16/16 15:33 07/16/16 15:33 General appearance: Present: mild distress, obese - EENT Eyes: Present: PERRL ENT: hearing intact, clear oral mucosa - Neck Neck: Present: supple, normal ROM - Respiratory Respiratory effort: normal Respiratory: bilateral: diminished - Cardiovascular Rhythm: regular - Extremities Extremities: no ischemia Peripheral Pulses: within normal limits - Abdominal General gastrointestinal: Present: soft, non-tender, non-distended, normal bowel sounds Female genitourinary: Present: normal - Integumentary Integumentary: Present: clear, warm, dry - Musculoskeletal Musculoskeletal: gait normal, strength equal bilaterally - Psychiatric Psychiatric: appropriate mood/affect, intact judgment & insight - Neurologic Neurologic: CNII-XII intact, moves all extremities Results - Labs CBC & Chem 7: 07/16/16 15:58 07/16/16 15:58 Labs: Abnormal lab results 07/16/16 07/16/16 Range/Units 15:58 15:58 WBC 26.2 H (4.5-11.0) K/mm3 Hgb 9.8 L (10.1-14.3) gm/dl MCH 27 L (28-32) pg Seg Neuts % (Manual) 75.5 H (40.0-70.0) % Lymphocytes % (Manual) 7.5 L (13.4-35.0) % Seg Neutrophils # Man 19.8 H (1.8-7.7) K/mm3 Monocytes # (Manual) 1.2 H (0.0-0.8) K/mm3 Chloride 96.9 L (98-107) mmol/L Carbon Dioxide 32 H (22-30) mmol/L Glucose 273 H (65-100) mg/dL Assessment and Plan - Patient Problems (1) Respiratory failure with hypoxia Current Visit: Yes Status: Acute Qualifiers: Chronicity: C Plan to address problem: NIPPV, supplemental oxygen, nebs, aspiration precautions, supportive care, (2) Sepsis Current Visit: Yes Status: Acute Qualifiers: Sepsis type: S Plan to address problem: Sepsis protocol: IV abx, ivf, supportive care, serial lactate, monitor uop q shift, (3) ACS (acute coronary syndrome) Current Visit: Yes Status: Acute Plan to address problem: serial cardiac enzymes, ekg, telemetry, d dimer, supportive care (4) Lactic acidosis Current Visit: Yes Status: Acute Plan to address problem: ivf, supportive care, serial lactic acid (5) Diabetes Current Visit: Yes Status: Acute Qualifiers: Diabetes mellitus type: D Diabetes mellitus complication status: D Diabetes mellitus complication detail: D Diabetic retinopathy severity: D Proliferative retinopathy type: P Diabetes mellitus macular edema: D Diabetes mellitus manager terminal insulin use: D Laterality: L Chronic kidney disease stage: C Plan to address problem: ADA diet, insulin, accu check (6) MALATHI (obstructive sleep apnea) Current Visit: Yes Status: Acute Plan to address problem: cpap at night, pulmonary consulted, (7) CHF (congestive heart failure) Current Visit: Yes Status: Acute Qualifiers: Congestive heart failure type: C Congestive heart failure chronicity: C Plan to address problem: Fluid restriction, monitor uop q shift, supportive care, 2gram sodium diet, resume home medication. (8) DVT prophylaxis Current Visit: Yes Status: Acute
[2016-07-16 17:40] LABS: INR 1.05 (0.87-1.13)
[2016-07-16] MEDS ORDERED: ZOFRAN IV PRN (17:58)
[2016-07-16] MEDS ORDERED: TYLENOL PO PRN ×2 (17:58→18:03)
[2016-07-16] MEDS ORDERED: DUONEB 0.5 MG-3 MG/3 ML SOLN IH PRN (17:58)
[2016-07-16] MEDS ORDERED: SODIUM CHLORIDE FLUSH SYRINGE 10 ML IV PRN (17:58)
[2016-07-16] MEDS ORDERED: DULCOLAX PR PRN (17:58)
[2016-07-16] MEDS ORDERED: MILK OF MAGNESIA PO PRN (17:58)
[2016-07-16] MEDS ORDERED: NACL 0.9% 1000 ML IV ONE (18:02)
[2016-07-16] MEDS ORDERED: PROVENTIL IH PRN (18:11)
[2016-07-16] MEDS ORDERED: NACL 0.9% 1000 ML 4,000 ML ONE (18:25)
[2016-07-16] MEDS ORDERED: BABY ASPIRIN ONE (18:44)
[2016-07-16] MEDS: BABY ASPIRIN PO SCH (18:57)
[2016-07-16 19:00] LABS: Creatine Kinase MB 1.1 ng/mL (0.0-4.0)
[2016-07-16 19:01] LABS: Creatine Kinase 130 units/L (30-135)
[2016-07-16] MEDS ORDERED: PULMICORT IH ONE (19:27)
[2016-07-16] MEDS: PULMICORT IH SCH (19:40)
[2016-07-16 21:21] LABS: Creatine Kinase MB 1.2 ng/mL (0.0-4.0)
[2016-07-16 21:22] LABS: Creatine Kinase 137 units/L (30-135)
[2016-07-16] MEDS: LYRICA PO SCH (23:30)
[2016-07-16] MEDS: AMBIEN PO PRN (23:30)
[2016-07-16] MEDS: LEVEMIR SUB-Q SCH (23:31)
[2016-07-16] MEDS: ZOSYN/NS 4.5GM/100ML 4.5 GM/100 ML VIAL IV SCH (23:33)
[2016-07-16] MEDS: VIGAMOX OD SCH ×2 (23:39→23:40)
[2016-07-16] MEDS: PRED FORTE 1% OD SCH (23:40)
[2016-07-16] MEDS: NEVANAC OD SCH (23:40)
[2016-07-16] MEDS: XALATAN 0.005% OU SCH ×2 (23:46)
[2016-07-17 00:27] LABS: Creatine Kinase MB 1.3 ng/mL (0.0-4.0)
[2016-07-17 00:28] LABS: Creatine Kinase 125 units/L (30-135)
[2016-07-17] MEDS: NEVANAC OD SCH ×6 (05:06→23:21)
[2016-07-17] MEDS: VIGAMOX OD SCH ×6 (05:07→23:20)
[2016-07-17] MEDS: XALATAN 0.005% OU SCH ×6 (05:07→23:21)
[2016-07-17] MEDS: ZOSYN/NS 4.5GM/100ML 4.5 GM/100 ML VIAL IV SCH ×3 (05:28→18:04)
[2016-07-17] MEDS: PULMICORT IH SCH ×2 (08:03→20:25)
[2016-07-17] MEDS ORDERED: LEXISCAN IV ONE (08:05)
--- NOTE | 2016-07-17 11:33 | Progress Note ---
Assessment and Plan Assessment and plan: 1. Acute on chronic hypoxic respiratory failure Likely secondary to combination of sepsis/COPD/MALATHI/OHS Obtain chest CTA to exclude PE as she complained of chest pain and d-dimer elevated Treatment underlying conditions Pulmonary consulted 2. Sepsis Leukocytosis, tachycardia, tachypnea Chest x-ray and blood cultures obtained Will also check UA Continue antibiotics 3. COPD Continue inhaled bronchodilators, supplemental oxygen, NIPPV, pulmonary toileting 4. MALATHI On CPAP Pulmonary consulted 5. CAD On aspirin and statin Not an MOY inhibitor due to allergy Not on beta larry, for no reason, so will start Coreg 6. HTN BP controlled on diuretic 7. Morbid obesity Counseled 8. DVT/GI prophylaxis History Interval history: SOB, on O2 per [place] scheduled for CTA chest Hospitalist Physical - Constitutional Vitals: Temp Pulse Resp BP Pulse Ox 98.0 F 98 H 22 138/64 96 07/17/16 07:50 07/17/16 07:50 07/17/16 07:50 07/17/16 07:50 07/17/16 07:50 General appearance: Present: mild distress, obese (morbidly) - EENT Eyes: Present: PERRL, EOM intact. Absent: scleral icterus, conjunctival injection - Neck Neck: Present: other (large neck). Absent: enlarged thyroid, masses or JVD - Respiratory Respiratory effort: labored Respiratory: bilateral: diminished, negative: rales, rhonchi - Cardiovascular Rhythm: other (tachycardic) Heart Sounds: Present: S1 & S2. Absent: systolic murmur - Extremities Extremities: no ischemia - Neurologic Neurologic: CNII-XII intact, no focal deficits Results - Labs CBC & Chem 7: 07/16/16 15:58 07/16/16 15:58 Labs: Laboratory Last Values WBC 26.2 K/mm3 (4.5-11.0) H 07/16/16 15:58 RBC 3.66 M/mm3 (3.65-5.03) 07/16/16 15:58 Hgb 9.8 gm/dl (10.1-14.3) L 07/16/16 15:58 Hct 32.0 % (30.3-42.9) 07/16/16 15:58 MCV 87 fl (79-97) 07/16/16 15:58 MCH 27 pg (28-32) L 07/16/16 15:58 MCHC 31 % (30-34) 07/16/16 15:58 RDW 14.6 % (13.2-15.2) 07/16/16 15:58 Plt Count 352 K/mm3 (140-440) 07/16/16 15:58 Add Manual Diff Complete 07/16/16 15:58 Total Counted 200 07/16/16 15:58 Seg Neuts % (Manual) 75.5 % (40.0-70.0) H 07/16/16 15:58 Band Neutrophils % 11.0 % 07/16/16 15:58 Lymphocytes % (Manual) 7.5 % (13.4-35.0) L 07/16/16 15:58 Reactive Lymphs % (Man) 0 % 07/16/16 15:58 Monocytes % (Manual) 4.5 % (0.0-7.3) 07/16/16 15:58 Eosinophils % (Manual) 1.0 % (0.0-4.3) 07/16/16 15:58 Basophils % (Manual) 0.5 % (0.0-1.8) 07/16/16 15:58 Metamyelocytes % 0 % 07/16/16 15:58 Myelocytes % 0 % 07/16/16 15:58 Promyelocytes % 0 % 07/16/16 15:58 Blast Cells % 0 % 07/16/16 15:58 Nucleated RBC % Not Reportable 07/16/16 15:58 Seg Neutrophils # Man 19.8 K/mm3 (1.8-7.7) H 07/16/16 15:58 Band Neutrophils # 2.9 K/mm3 07/16/16 15:58 Lymphocytes # (Manual) 2.0 K/mm3 (1.2-5.4) 07/16/16 15:58 Abs React Lymphs (Man) 0.0 K/mm3 07/16/16 15:58 Monocytes # (Manual) 1.2 K/mm3 (0.0-0.8) H 07/16/16 15:58 Eosinophils # (Manual) 0.3 K/mm3 (0.0-0.4) 07/16/16 15:58 Basophils # (Manual) 0.1 K/mm3 (0.0-0.1) 07/16/16 15:58 Metamyelocytes # 0.0 K/mm3 07/16/16 15:58 Myelocytes # 0.0 K/mm3 07/16/16 15:58 Promyelocytes # 0.0 K/mm3 07/16/16 15:58 Blast Cells # 0.0 K/mm3 07/16/16 15:58 WBC Morphology Not Reportable 07/16/16 15:58 Hypersegmented Neuts Not Reportable 07/16/16 15:58 Hyposegmented Neuts Not Reportable 07/16/16 15:58 Hypogranular Neuts Not Reportable 07/16/16 15:58 Smudge Cells Not Reportable 07/16/16 15:58 Toxic Granulation Not Reportable 07/16/16 15:58 Toxic Vacuolation Not Reportable 07/16/16 15:58 Dohle Bodies Not Reportable 07/16/16 15:58 Pelger-Huet Anomaly Not Reportable 07/16/16 15:58 Jasmyn Rods Not Reportable 07/16/16 15:58 Platelet Estimate Cons 07/16/16 15:58 Clumped Platelets Not Reportable 07/16/16 15:58 Plt Clumps, EDTA Not Reportable 07/16/16 15:58 Large Platelets Not Reportable 07/16/16 15:58 Giant Platelets Few 07/16/16 15:58 Platelet Satelliting Not Reportable 07/16/16 15:58 Plt Morphology Comment Not Reportable 07/16/16 15:58 RBC Morphology Not Reportable 07/16/16 15:58 Dimorphic RBCs Not Reportable 07/16/16 15:58 Polychromasia Not Reportable 07/16/16 15:58 Hypochromasia 1+ 07/16/16 15:58 Poikilocytosis Not Reportable 07/16/16 15:58 Anisocytosis 1+ 07/16/16 15:58 Microcytosis Not Reportable 07/16/16 15:58 Macrocytosis Not Reportable 07/16/16 15:58 Spherocytes Not Reportable 07/16/16 15:58 Pappenheimer Bodies Not Reportable 07/16/16 15:58 Sickle Cells Not Reportable 07/16/16 15:58 Target Cells Not Reportable 07/16/16 15:58 Tear Drop Cells Not Reportable 07/16/16 15:58 Ovalocytes 1+ 07/16/16 15:58 Helmet Cells Not Reportable 07/16/16 15:58 [place] Bodies Not Reportable 07/16/16 15:58 [place] Rings Not Reportable 07/16/16 15:58 Mariela Cells Not Reportable 07/16/16 15:58 Bite Cells Not Reportable 07/16/16 15:58 Crenated Cell Not Reportable 07/16/16 15:58 Elliptocytes Not Reportable 07/16/16 15:58 Acanthocytes (Spur) Not Reportable 07/16/16 15:58 Rouleaux Not Reportable 07/16/16 15:58 Hemoglobin C Crystals Not Reportable 07/16/16 15:58 Schistocytes Not Reportable 07/16/16 15:58 Malaria parasites Not Reportable 07/16/16 15:58 Papito Bodies Not Reportable 07/16/16 15:58 Hem Pathologist Commnt No 07/16/16 15:58 PT 13.6 Sec. (12.2-14.9) 07/16/16 17:02 INR 1.05 (0.87-1.13) 07/16/16 17:02 D-Dimer 497.53 ng/mlDDU (0-234) H 07/16/16 19:37 Sodium 142 mmol/L (137-145) 07/16/16 15:58 Potassium 4.1 mmol/L (3.6-5.0) 07/16/16 15:58 Chloride 96.9 mmol/L (98-107) L 07/16/16 15:58 Carbon Dioxide 32 mmol/L (22-30) H 07/16/16 15:58 Anion Gap 17 mmol/L 07/16/16 15:58 BUN 8 mg/dL (7-17) 07/16/16 15:58 Creatinine 0.9 mg/dL (0.7-1.2) 07/16/16 15:58 Estimated GFR > 60 ml/min 07/16/16 15:58 BUN/Creatinine Ratio 8.88 % 07/16/16 15:58 Glucose 273 mg/dL (65-100) H 07/16/16 15:58 POC Glucose 320 (70-105) H 07/17/16 08:56 Lactic Acid 1.50 mmol/L (0.7-2.0) 07/16/16 20:28 Calcium 8.9 mg/dL (8.4-10.2) 07/16/16 15:58 Total Creatine Kinase 125 units/L (30-135) 07/16/16 23:47 CK-MB (CK-2) 1.3 ng/mL (0.0-4.0) 07/16/16 23:47 CK-MB (CK-2) Rel Index 1.0 (0-4) 07/16/16 23:47 Troponin T < 0.010 ng/mL (0.00-0.029) 07/16/16 23:47 NT-Pro-B Natriuret Pep 629.7 pg/mL (0-900) 07/16/16 17:02 Triglycerides 184 mg/dL (2-149) H 07/16/16 18:31 Cholesterol 171 mg/dL (50-199) 07/16/16 18:31 LDL Cholesterol Direct 100 mg/dL (50-130) 07/16/16 18:31 HDL Cholesterol 35 mg/dL (40-59) L 07/16/16 18:31 Cholesterol/HDL Ratio 4.88 % 07/16/16 18:31 - Imaging and Cardiology Chest x-ray: image reviewed (atelectasis)
[2016-07-17] MEDS: LYRICA PO SCH ×2 (12:01→21:32)
[2016-07-17] MEDS: DEMADEX PO SCH (12:02)
[2016-07-17] MEDS: EFFEXOR PO SCH (12:02)
[2016-07-17] MEDS: LEVAQUIN 750MG/150ML 750 MG/150 ML BAG IV SCH (12:02)
[2016-07-17] MEDS: BABY ASPIRIN PO SCH ×2 (12:02→12:14)
[2016-07-17] MEDS: LEVEMIR SUB-Q SCH ×2 (12:03→21:34)
[2016-07-17] MEDS ORDERED: SENOKOT PO PRN (12:50)
--- NOTE | 2016-07-17 12:54 | Consultation ---
History of Present Illness Consult date: 07/17/16 Requesting physician: KYARA THOMPSON Reason for consult: other (Acute Respiratory Failure) History of present illness: PULMONARY/CCM CONSULT NOTE (Full dictation # [id number]) Please see dictated notes for full details Past History Past Medical History: CAD, diabetes, heart failure, hypertension Past Surgical History: Other (renal stent) Social history: . denies: smoking, alcohol abuse, prescription drug abuse Family history: diabetes, hypertension Medications and Allergies Allergies Allergy/AdvReac Type Severity Reaction Status Date / Time MOY Inhibitors Allergy Angioedema Verified 04/20/16 16:35 azithromycin Allergy Angioedema Verified 04/20/16 16:35 [From Zithromax Z-Nick] gabapentin AdvReac Unknown Verified 04/20/16 16:35 Home Medications Medication Instructions Recorded Confirmed Last Taken Type Latanoprost 1 drop OU Q4H 05/09/16 05/09/16 Unknown History Nepafenac [Ilevro 0.3%] 1 drop OD Q4H 05/09/16 05/09/16 Unknown History Acetaminophen [Acetaminophen TAB] 650 mg PO Q4H PRN #10 tablet 05/11/16 Unknown Rx Amoxicillin/K Clav Tab [Augmentin 1 each PO Q12HR #10 tablet 05/11/16 Unknown Rx 875MG TAB] Arformoterol Nebu [Brovana Nebu] 15 mcg IH Q12HRT #30 unit 05/11/16 Unknown Rx Aspirin [Aspirin BABY CHEW TAB] 81 mg PO QDAY #30 tab.chew 05/11/16 05/07/16 Rx AtorvaSTATin [Lipitor] 40 mg PO DAILY #30 tablet 05/11/16 Unknown Rx Budesonide [Pulmicort Respules] 1 mg IH Q12HRT #30 nebu 05/11/16 Unknown Rx Carvedilol [Coreg] 25 mg PO Q12HR #60 tablet 05/11/16 Unknown Rx Fluconazole [Diflucan TAB] 100 mg PO ONCE PRN #2 tablet 05/11/16 Unknown Rx HYDROcodone/APAP 10-325 [[place] 1 each PO Q6H PRN #30 tablet 05/11/16 Unknown Rx 10-325 mg TAB] Insulin Detemir [Levemir] 40 units SUB-Q QAMDIAB #30 day 05/11/16 Unknown Rx Insulin Detemir [Levemir] 45 units SUB-Q QHS #30 day 05/11/16 Unknown Rx Ipratropium/Albuterol Sulfate 1 ampul IH Q6HRT #30 ampul.neb 05/11/16 Unknown Rx [Duoneb 0.5 mg-3 mg/3 ml Soln] Ipratropium/Albuterol Sulfate 1 ampul IH TIDRT #30 ampul.neb 05/11/16 05/07/16 05/06/16 Rx [Duoneb 0.5 mg-3 mg/3 ml Soln] Lidocaine Topical 5% [Xylocaine 1 applic TP TID PRN #1 tube 05/11/16 Unknown Rx Topical 5%] Moxifloxacin HCl [Vigamox 0.5%] 1 drop OD Q4H #1 05/11/16 05/09/16 Unknown Rx Nepafenac 0.1% [Nevanac] 1 drops OD Q4H bottle 05/11/16 Unknown Rx Pregabalin [Lyrica] 50 mg PO BID #30 capsule 05/11/16 Unknown Rx Torsemide [Demadex] 60 mg PO QAM tablet 05/11/16 Unknown Rx Venlafaxine [Effexor] 75 mg PO DAILY #30 tablet 05/11/16 Unknown Rx Zolpidem [Ambien] 5 mg PO QHS PRN #30 tablet 05/11/16 Unknown Rx amLODIPine [Norvasc] 10 mg PO DAILY #30 tablet 05/11/16 Unknown Rx guaiFENesin DM [Robitussin Dm] 10 ml PO Q6H PRN #30 oral.liqd 05/11/16 Unknown Rx methylPREDNISolone [Medrol Dose 1 mg PO DAILY #1 pack 05/11/16 Unknown Rx Nick] oxyCODONE /ACETAMINOPHEN [Percocet 1 tab PO Q6H PRN #30 tablet 05/11/16 Unknown Rx 5/325 mg] prednisoLONE ACETATE 1% [Pred 1 drops OD QID bottle 05/11/16 Unknown Rx Forte 1%] Active Meds: Active Medications Acetaminophen (Tylenol) 650 mg PO Q4H PRN PRN Reason: Pain MILD(1-3)/Fever >100.5/[place] Acetaminophen (Tylenol) 650 mg PO Q4H PRN PRN Reason: Pain MILD(1-3)/Fever >100.5/[place] Albuterol (Proventil) 2.5 mg IH Q4HRT PRN PRN Reason: Shortness Of Breath Last Admin: 07/17/16 08:04 Dose: 2.5 mg Aspirin (Baby Aspirin) 81 mg PO QDAY [facility] Last Admin: 07/17/16 12:02 Dose: 81 mg Atorvastatin Calcium (Lipitor) 40 mg PO DAILY [facility] Last Admin: 07/17/16 12:02 Dose: 40 mg Bisacodyl (Dulcolax) 10 mg CA QDAY PRN PRN Reason: Constipation unrelieved by MOM Budesonide (Pulmicort) 1 mg IH Q12HRT [facility] Last Admin: 07/17/16 08:03 Dose: 1 mg Carvedilol (Coreg) 6.25 mg PO BID [facility] Docusate Sodium (Colace) 100 mg PO BID [facility] Guaifenesin (Robitussin Dm) 10 ml PO Q6H PRN PRN Reason: Cough Levofloxacin/Dextrose (Levaquin 750mg/150ml) 750 mg in 150 mls @ 100 mls/hr IV Q24HR [facility] PRN Reason: Protocol Last Admin: 07/17/16 12:02 Dose: 100 mls/hr Piperacillin Sod/Tazobactam Sod (Zosyn/Ns 4.5gm/100ml) 4.5 gm in 100 mls @ 200 mls/hr IV Q6HR [facility] PRN Reason: Protocol Last Admin: 07/17/16 05:28 Dose: 200 mls/hr Insulin Aspart (Novolog) 0 units SUB-Q ACHS [facility] PRN Reason: Protocol Insulin Detemir (Levemir) 40 units SUB-Q QAMDIAB [facility] Last Admin: 07/17/16 12:03 Dose: Not Given Insulin Detemir (Levemir) 45 units SUB-Q QHS [facility] Last Admin: 07/16/16 23:31 Dose: 45 units Latanoprost (Xalatan 0.005%) 1 drops OU Q4H [facility] Last Admin: 07/17/16 05:07 Dose: Not Given Magnesium Hydroxide (Milk Of Magnesia) 30 ml PO Q4H PRN PRN Reason: Constipation Moxifloxacin HCl (Vigamox) 1 drops OD Q4H [facility] Last Admin: 07/17/16 12:05 Dose: 1 drops Nepafenac (Nevanac) 1 drops OD Q4H [facility] Last Admin: 07/17/16 05:06 Dose: Not Given Nitroglycerin (Nitrostat) 0.4 mg SL .Q5MIN PRN PRN Reason: Chest Pain Ondansetron HCl (Zofran) 4 mg IV Q8H PRN PRN Reason: N/V unrelieved by Reglan Oxycodone/Acetaminophen (Percocet 5/325) 1 tab PO Q6H PRN PRN Reason: Pain , Severe (7-10) Prednisolone Acetate (Pred Forte 1%) 1 drops OD QID [facility] Last Admin: 07/16/16 23:40 Dose: Not Given Pregabalin (Lyrica) 50 mg PO BID [facility] Last Admin: 07/17/16 12:01 Dose: 50 mg Senna (Senokot) 17.6 mg PO Q12HR PRN PRN Reason: Laxative Effect Sodium Chloride (Sodium Chloride Flush Syringe 10 Ml) 10 ml IV PRN PRN PRN Reason: LINE FLUSH Torsemide (Demadex) 60 mg PO QAM [facility] Last Admin: 07/17/16 12:02 Dose: 60 mg Venlafaxine HCl (Effexor) 75 mg PO DAILY [facility] Last Admin: 07/17/16 12:02 Dose: 75 mg Zolpidem Tartrate (Ambien) 5 mg PO QHS PRN PRN Reason: Sleep Last Admin: 07/16/16 23:30 Dose: 5 mg Physical Examination Vital signs: Vital Signs Temp Pulse Resp BP Pulse Ox 98.1 F 108 H 22 121/65 95 07/16/16 15:33 07/16/16 15:33 07/16/16 15:33 07/16/16 15:33 07/16/16 15:33 Results - Laboratory Findings CBC and BMP: 07/16/16 15:58 07/16/16 15:58 PT/INR, D-dimer PT 13.6 Sec. (12.2-14.9) 07/16/16 17:02 INR 1.05 (0.87-1.13) 07/16/16 17:02 D-Dimer 497.53 ng/mlDDU (0-234) H 07/16/16 19:37 Abnormal lab findings: Abnormal Labs 07/16/16 07/16/16 07/16/16 18:31 19:37 20:28 D-Dimer 497.53 H POC Glucose Total Creatine Kinase 137 H Triglycerides 184 H HDL Cholesterol 35 L 07/16/16 07/17/16 22:37 08:56 D-Dimer POC Glucose 202 H 320 H Total Creatine Kinase Triglycerides HDL Cholesterol
[2016-07-17] MEDS: PRED FORTE 1% OD SCH ×4 (12:55→21:46)
--- NOTE | 2016-07-17 13:10 | Consultation ---
History of Present Illness Consult date: 07/17/16 Consult reason: chest pain History of present illness: This patient is a 61-year-old woman with multiple medical problems including obesity, COPD, obstructive sleep apnea, hypertension and diabetes. She has had extensive invasive and noninvasive ischemic cardiac workup in the past several years. 2 years ago, June 2013, she underwent a cardiac catheterization at this hospital that demonstrated no significant coronary disease, ejection fraction 45-50%. A year later in May 2014 and echocardiogram reported and normal left ventricle systolic ejection fraction 55-60%. The patient also reports that last year, she underwent a thallium stress test at [facility] in [place], which was negative. She presents to the hospital at this time with chest pain which occurred while she was recumbent in bed. She states that 2 days prior to that, she had been experiencing right ear ache and sore throat, and obtained antibiotics from the PCP which she started taking. The resulting chest pain was nonexertional, was associate with nausea and on presentation to the hospital, ECG was normal sinus rhythm with no acute changes. Patient is currently on the telemetry floor, comfortable, no further symptoms looks and feels well. Past History Past Medical History: CAD, diabetes, heart failure, hypertension Past Surgical History: Other (renal stent) Social history: . denies: smoking, alcohol abuse, prescription drug abuse Family history: diabetes, hypertension Medications and Allergies Allergies Allergy/AdvReac Type Severity Reaction Status Date / Time MOY Inhibitors Allergy Angioedema Verified 04/20/16 16:35 azithromycin Allergy Angioedema Verified 04/20/16 16:35 [From Zithromax Z-Nick] gabapentin AdvReac Unknown Verified 04/20/16 16:35 Home Medications Medication Instructions Recorded Confirmed Last Taken Type Latanoprost 1 drop OU Q4H 05/09/16 05/09/16 Unknown History Nepafenac [Ilevro 0.3%] 1 drop OD Q4H 05/09/16 05/09/16 Unknown History Acetaminophen [Acetaminophen TAB] 650 mg PO Q4H PRN #10 tablet 05/11/16 Unknown Rx Amoxicillin/K Clav Tab [Augmentin 1 each PO Q12HR #10 tablet 05/11/16 Unknown Rx 875MG TAB] Arformoterol Nebu [Brovana Nebu] 15 mcg IH Q12HRT #30 unit 05/11/16 Unknown Rx Aspirin [Aspirin BABY CHEW TAB] 81 mg PO QDAY #30 tab.chew 05/11/16 05/07/16 Rx AtorvaSTATin [Lipitor] 40 mg PO DAILY #30 tablet 05/11/16 Unknown Rx Budesonide [Pulmicort Respules] 1 mg IH Q12HRT #30 nebu 05/11/16 Unknown Rx Carvedilol [Coreg] 25 mg PO Q12HR #60 tablet 05/11/16 Unknown Rx Fluconazole [Diflucan TAB] 100 mg PO ONCE PRN #2 tablet 05/11/16 Unknown Rx HYDROcodone/APAP 10-325 [[place] 1 each PO Q6H PRN #30 tablet 05/11/16 Unknown Rx 10-325 mg TAB] Insulin Detemir [Levemir] 40 units SUB-Q QAMDIAB #30 day 05/11/16 Unknown Rx Insulin Detemir [Levemir] 45 units SUB-Q QHS #30 day 05/11/16 Unknown Rx Ipratropium/Albuterol Sulfate 1 ampul IH Q6HRT #30 ampul.neb 05/11/16 Unknown Rx [Duoneb 0.5 mg-3 mg/3 ml Soln] Ipratropium/Albuterol Sulfate 1 ampul IH TIDRT #30 ampul.neb 05/11/16 05/07/16 05/06/16 Rx [Duoneb 0.5 mg-3 mg/3 ml Soln] Lidocaine Topical 5% [Xylocaine 1 applic TP TID PRN #1 tube 05/11/16 Unknown Rx Topical 5%] Moxifloxacin HCl [Vigamox 0.5%] 1 drop OD Q4H #1 05/11/16 05/09/16 Unknown Rx Nepafenac 0.1% [Nevanac] 1 drops OD Q4H bottle 05/11/16 Unknown Rx Pregabalin [Lyrica] 50 mg PO BID #30 capsule 05/11/16 Unknown Rx Torsemide [Demadex] 60 mg PO QAM tablet 05/11/16 Unknown Rx Venlafaxine [Effexor] 75 mg PO DAILY #30 tablet 05/11/16 Unknown Rx Zolpidem [Ambien] 5 mg PO QHS PRN #30 tablet 05/11/16 Unknown Rx amLODIPine [Norvasc] 10 mg PO DAILY #30 tablet 05/11/16 Unknown Rx guaiFENesin DM [Robitussin Dm] 10 ml PO Q6H PRN #30 oral.liqd 05/11/16 Unknown Rx methylPREDNISolone [Medrol Dose 1 mg PO DAILY #1 pack 05/11/16 Unknown Rx Nick] oxyCODONE /ACETAMINOPHEN [Percocet 1 tab PO Q6H PRN #30 tablet 05/11/16 Unknown Rx 5/325 mg] prednisoLONE ACETATE 1% [Pred 1 drops OD QID bottle 05/11/16 Unknown Rx Forte 1%] Active Meds: Active Medications Acetaminophen (Tylenol) 650 mg PO Q4H PRN PRN Reason: Pain MILD(1-3)/Fever >100.5/[place] Albuterol (Proventil) 2.5 mg IH Q4HRT PRN PRN Reason: Shortness Of Breath Last Admin: 07/17/16 08:04 Dose: 2.5 mg Aspirin (Baby Aspirin) 81 mg PO QDAY [facility] Last Admin: 07/17/16 12:02 Dose: 81 mg Atorvastatin Calcium (Lipitor) 40 mg PO DAILY [facility] Last Admin: 07/17/16 12:02 Dose: 40 mg Bisacodyl (Dulcolax) 10 mg CA QDAY PRN PRN Reason: Constipation unrelieved by MOM Budesonide (Pulmicort) 1 mg IH Q12HRT [facility] Last Admin: 07/17/16 08:03 Dose: 1 mg Carvedilol (Coreg) 6.25 mg PO BID [facility] Docusate Sodium (Colace) 100 mg PO BID [facility] Guaifenesin (Robitussin Dm) 10 ml PO Q6H PRN PRN Reason: Cough Levofloxacin/Dextrose (Levaquin 750mg/150ml) 750 mg in 150 mls @ 100 mls/hr IV Q24HR [facility] PRN Reason: Protocol Last Admin: 07/17/16 12:02 Dose: 100 mls/hr Piperacillin Sod/Tazobactam Sod (Zosyn/Ns 4.5gm/100ml) 4.5 gm in 100 mls @ 200 mls/hr IV Q6HR [facility] PRN Reason: Protocol Last Admin: 07/17/16 12:57 Dose: 200 mls/hr Insulin Aspart (Novolog) 0 units SUB-Q ACHS [facility] PRN Reason: Protocol Insulin Detemir (Levemir) 40 units SUB-Q QAMDIAB [facility] Last Admin: 07/17/16 12:03 Dose: Not Given Insulin Detemir (Levemir) 45 units SUB-Q QHS [facility] Last Admin: 07/16/16 23:31 Dose: 45 units Latanoprost (Xalatan 0.005%) 1 drops OU Q4H [facility] Last Admin: 07/17/16 12:56 Dose: 1 drops Magnesium Hydroxide (Milk Of Magnesia) 30 ml PO Q4H PRN PRN Reason: Constipation Moxifloxacin HCl (Vigamox) 1 drops OD Q4H [facility] Last Admin: 07/17/16 12:57 Dose: 1 drops Nepafenac (Nevanac) 1 drops OD Q4H [facility] Last Admin: 07/17/16 12:55 Dose: 1 drops Nitroglycerin (Nitrostat) 0.4 mg SL .Q5MIN PRN PRN Reason: Chest Pain Ondansetron HCl (Zofran) 4 mg IV Q8H PRN PRN Reason: N/V unrelieved by Reglan Oxycodone/Acetaminophen (Percocet 5/325) 1 tab PO Q6H PRN PRN Reason: Pain , Severe (7-10) Prednisolone Acetate (Pred Forte 1%) 1 drops OD QID [facility] Last Admin: 07/17/16 12:55 Dose: 1 drops Pregabalin (Lyrica) 50 mg PO BID [facility] Last Admin: 07/17/16 12:01 Dose: 50 mg Senna (Senokot) 17.6 mg PO Q12HR PRN PRN Reason: Laxative Effect Sodium Chloride (Sodium Chloride Flush Syringe 10 Ml) 10 ml IV PRN PRN PRN Reason: LINE FLUSH Torsemide (Demadex) 60 mg PO QAM [facility] Last Admin: 07/17/16 12:02 Dose: 60 mg Venlafaxine HCl (Effexor) 75 mg PO DAILY [facility] Last Admin: 07/17/16 12:02 Dose: 75 mg Zolpidem Tartrate (Ambien) 5 mg PO QHS PRN PRN Reason: Sleep Last Admin: 07/16/16 23:30 Dose: 5 mg Review of Systems Cardiovascular: chest pain, no orthopnea, no palpitations, no rapid/irregular heart beat, no edema, no syncope, no lightheadedness, no shortness of breath Physical Examination Vital Signs Temp Pulse Resp BP Pulse Ox 98.1 F 108 H 22 121/65 95 07/16/16 15:33 07/16/16 15:33 07/16/16 15:33 07/16/16 15:33 07/16/16 15:33 General appearance: no acute distress HEENT: Positive: PERRL Neck: Positive: neck supple Cardiac: Positive: Reg Rate and Rhythm Lungs: Positive: Decreased Breath Sounds Neuro: Positive: Grossly Intact Abdomen: Positive: Soft Female genitourinary: deferred Skin: Positive: Clear Extremities: Absent: edema Results 07/16/16 15:58 07/16/16 15:58 Cardiac Enzymes 07/16/16 07/16/16 07/16/16 Range/Units 18:31 20:28 23:47 CK-MB (CK-2) 1.1 1.2 1.3 (0.0-4.0) ng/mL Lipids 07/16/16 Range/Units 18:31 Triglycerides 184 H (2-149) mg/dL Cholesterol 171 (50-199) mg/dL HDL Cholesterol 35 L (40-59) mg/dL Cholesterol/HDL Ratio 4.88 % EKG interpretations - Telemetry EKG Rhythm: Sinus Rhythm Assessment and Plan - Patient Problems (1) Chest pain Current Visit: Yes Status: Acute Qualifiers: Chest pain type: C Ischemic chest pain type: I Plan to address problem: Patient has atypical chest pain, while she was recumbent in bed, after days of oral antibiotic therapy for upper respiratory infection. No exertional symptoms , will suggest probable gastroesophageal reflux. In addition, she has had extensive invasive and noninvasive ischemic cardiac workup in the past 2 years as detailed above, all of which was negative. The ECG is negative, no further ischemic cardiac workup is indicated unless more specific symptoms of angina.
[2016-07-17] MEDS ORDERED: NACL ONE (13:39)
[2016-07-17] MEDS: COREG PO SCH ×2 (13:40→21:32)
[2016-07-17] MEDS: COLACE PO SCH ×2 (13:40→21:32)
[2016-07-17] MEDS: PERCOCET 5/325 PO PRN ×2 (13:40→20:38)
--- NOTE | 2016-07-17 14:24 | Cat Scan Report ---
FINAL REPORT EXAM: CT ANGIO CHEST HISTORY: chest pain Ki TECHNIQUE: CTA of the chest with IV contrast. MIP reformations. PRIORS: None FINDINGS: No thoracic aortic aneurysm or dissection seen. Visualized portions of the upper abdomen remarkable for some adrenal thickening bilaterally with no discrete mass. No pathologically enlarged lymph nodes seen. Small Bochdalek's hernia on the left. No embolism seen. Mild left basilar atelectasis. IMPRESSION: 1. No embolism seen. Mild left basilar atelectasis. 2. Some adrenal gland thickening bilaterally without a discrete mass may relate to hyperplasia.
[2016-07-17] MEDS: NOVOLOG SUB-Q SCH ×2 (18:04→21:33)
[2016-07-17] MEDS: AMBIEN PO PRN (21:47)
[2016-07-18] MEDS: XALATAN 0.005% OU SCH ×5 (04:06→22:00)
[2016-07-18] MEDS: VIGAMOX OD SCH (04:07)
[2016-07-18] MEDS: NEVANAC OD SCH (04:07)
--- NOTE | 2016-07-18 07:36 | Admit Criteria Form ---
Admission Criteria Documentation: SEPSIS and OTHER FEBRILE ILLNESS, W/O FOCAL INFECTION Clinical Indications for Admission to Inpatient Care ( Place 'X' for any and all applicable criteria): Admission is indicated for ANY ONE of the following (1)(2)(3)(4): [X] I. Bacteremia [ ]II. Suspected or identified specific infection requiring hospitalization (eg, meningitis, endocarditis) [ ]III. Hemodynamic instability [ ]IV. Altered mental status [ ]V. Failure or unavailability of outpatient antimicrobial treatment [X ]. Hypoxemia [ ]VII. Seizures [ ]VIII. High-risk febrile neutropenia [ ]IX. Need for parenteral antibiotic in patient who is likely to abuse vascular access device (eg, injection drug user) [A](7) [ ]X. Temperature greater than 104.9 degrees F (40.5 degrees C) (oral) [ ]XI. Inpatient admission required rather than observation care because of ANY ONE of the following: [ ]1) Specific infection identified that is too severe for outpatient treatment or observation care trial [ ]2) Metabolic disorder (eg, hypoglycemia, hyperglycemia, metabolic acidosis) that is severe or persistent [ ]3) Temperature greater than 103.1 degrees F (39.5 degrees C) ( oral) that is not responsive to observation care treatment [ ]4) IV fluid to replace significant ongoing (eg, for over 24 hours) losses (> 3 L/m2 per day) [ ]5) Supplemental oxygen or respiratory treatments for over 24 hours that is performable only in acute inpatient setting [ ]6) Parenteral nutrition regimen need that must be implemented on inpatient basis [ ]7) Strict or protective (eg, laminar flow) isolation [ ]8) Other condition, treatment or monitoring requiring inpatient admission Extended stay beyond goal length of stay may be needed for(1)(3) [ ]a) Sepsis or septic shock(22) [ ]b) Positive blood cultures [ ]c) Insufficient oral intake [ ]d) High-risk febrile neutropenia(29)(30) [ ]e) Continued fever and clinical instability [ ]f) Clinically active comorbid illness (e.g,heart failure, renal failure , diabetes) The original [facility] content created by Abbie Lang has been revised. The portions of the content which have been revised are identified through the use of italic text or in bold, and Abbie Lang has neither reviewed nor approved the modified material. All other unmodified content is copyright [facility]. Please see references footnoted in the original [facility] edition 2016 Admission Criteria Met: Yes
[2016-07-18] MEDS: LEVEMIR SUB-Q SCH ×2 (08:06→21:59)
[2016-07-18] MEDS: NOVOLOG SUB-Q SCH ×4 (08:06→22:06)
[2016-07-18] MEDS: EFFEXOR PO SCH (09:49)
[2016-07-18] MEDS: BABY ASPIRIN PO SCH (09:50)
[2016-07-18] MEDS: COREG PO SCH ×2 (09:50→21:30)
[2016-07-18] MEDS: LYRICA PO SCH ×2 (09:50→21:28)
[2016-07-18] MEDS: COLACE PO SCH ×2 (09:51→21:30)
[2016-07-18] MEDS: LEVAQUIN 750MG/150ML 750 MG/150 ML BAG IV SCH (10:01)
[2016-07-18] MEDS: DEMADEX PO SCH (10:02)
[2016-07-18] MEDS: PERCOCET 5/325 PO PRN ×3 (10:03→21:28)
[2016-07-18] MEDS: XANAX PO PRN ×2 (10:03→21:29)
[2016-07-18] MEDS: VIGAMOX OU SCH ×4 (10:04→22:00)
[2016-07-18] MEDS: PRED FORTE 1% OD SCH ×4 (10:04→22:00)
[2016-07-18] MEDS: NEVANAC OU SCH ×4 (10:05→21:59)
[2016-07-18] MEDS: PULMICORT IH SCH ×2 (10:20→21:27)
[2016-07-18] MEDS: BROVANA NEBU IH SCH ×2 (10:20→21:28)
--- NOTE | 2016-07-18 11:23 | Progress Note ---
Assessment and Plan COPD Chest pain, atypical [facility] 06/2013 demonstrated no significant coronary disease, ejection fraction 45 -50%. Echocardiogram 05/2014 reported a normal left ventricle systolic ejection fraction 55-60%. MPI 2016 at [facility] in [place], was negative. Obstructive sleep apnea Hypertension Diabetes Obesity Conservative cardiac management. Subjective Date of service: 07/18/16 Interval history: No cardiac events overnight. Objective Vital Signs Temp Pulse Pulse Pulse Pulse Pulse Resp 07/18/16 10:40 88 07/18/16 10:20 97 H 07/18/16 10:00 07/18/16 09:50 78 07/18/16 08:20 98.0 F 91 H 20 07/18/16 04:15 97.8 F 78 22 07/18/16 04:00 92 H 07/18/16 01:30 74 18 07/18/16 00:20 97.6 F 87 20 07/17/16 20:46 07/17/16 20:37 07/17/16 20:25 90 07/17/16 20:24 20 07/17/16 20:11 97.9 F 86 22 07/17/16 20:00 98 H 07/17/16 16:15 98.7 F 96 H 20 07/17/16 13:40 98 H 07/17/16 12:43 98 H 07/17/16 12:20 96 H 24 Resp BP BP BP Pulse Ox 07/18/16 10:40 18 07/18/16 10:20 18 07/18/16 10:00 99 07/18/16 09:50 145/67 07/18/16 08:20 163/77 97 07/18/16 04:15 164/84 97 07/18/16 04:00 07/18/16 01:30 96 07/18/16 00:20 143/68 98 07/17/16 20:46 98 07/17/16 20:37 20 07/17/16 20:25 20 07/17/16 20:24 07/17/16 20:11 131/70 96 07/17/16 20:00 07/17/16 16:15 129/66 99 07/17/16 13:40 138/61 07/17/16 12:43 07/17/16 12:20 153/69 - Physical Examination General: No Apparent Distress HEENT: Positive: PERRL Neck: Positive: neck supple Cardiac: Positive: Reg Rate and Rhythm Neuro: Positive: Grossly Intact Extremities: Absent: edema
[2016-07-18] MEDS: PROTONIX PO SCH (12:11)
--- NOTE | 2016-07-18 12:32 | Progress Note ---
Assessment and Plan Assessment and plan: 1. Acute on chronic hypoxic respiratory failure Likely secondary to combination of sepsis/COPD/MALATHI/OHS Chest CTA obtained to exclude PE (negative) Treatment underlying conditions Pulmonary consulted 2. Sepsis Leukocytosis, tachycardia, tachypnea Chest x-ray, blood cultures obtained and negative Could be due to corticosteroid use 3. COPD Continue inhaled bronchodilators, supplemental oxygen, NIPPV, pulmonary toileting 4. MALATHI On CPAP Pulmonary consulted 5. CAD On aspirin and statin Not an MOY inhibitor due to allergy Started on Coreg Per Cardiology, she had extensive cardiac work up negative for ischemia 6. HTN BP controlled on diuretic 7. Morbid obesity Counseled 8. DVT/GI prophylaxis History Interval history: feeling better, on CpAP no chest pain Hospitalist Physical - Constitutional Vitals: Temp Pulse Resp BP Pulse Ox 98.0 F 88 18 145/67 99 07/18/16 08:20 07/18/16 10:40 07/18/16 10:40 07/18/16 09:50 07/18/16 10:00 General appearance: Present: no acute distress, obese (morbidly) - EENT Eyes: Present: PERRL, EOM intact. Absent: scleral icterus, conjunctival injection - Neck Neck: Present: other (large neck). Absent: enlarged thyroid, masses or JVD - Respiratory Respiratory effort: other (on CPAP) Respiratory: bilateral: diminished, negative: rhonchi, wheezing - Cardiovascular Rhythm: regular Heart Sounds: Present: S1 & S2. Absent: systolic murmur - Extremities Extremities: no ischemia - Abdominal General gastrointestinal: soft, non-tender, non-distended, normal bowel sounds - Psychiatric Psychiatric: cooperative - Neurologic Neurologic: CNII-XII intact, no focal deficits Results - Labs CBC & Chem 7: 07/16/16 15:58 07/16/16 15:58 Labs: Laboratory Last Values WBC 26.2 K/mm3 (4.5-11.0) H 07/16/16 15:58 RBC 3.66 M/mm3 (3.65-5.03) 07/16/16 15:58 Hgb 9.8 gm/dl (10.1-14.3) L 07/16/16 15:58 Hct 32.0 % (30.3-42.9) 07/16/16 15:58 MCV 87 fl (79-97) 07/16/16 15:58 MCH 27 pg (28-32) L 07/16/16 15:58 MCHC 31 % (30-34) 07/16/16 15:58 RDW 14.6 % (13.2-15.2) 07/16/16 15:58 Plt Count 352 K/mm3 (140-440) 07/16/16 15:58 Add Manual Diff Complete 07/16/16 15:58 Total Counted 200 07/16/16 15:58 Seg Neuts % (Manual) 75.5 % (40.0-70.0) H 07/16/16 15:58 Band Neutrophils % 11.0 % 07/16/16 15:58 Lymphocytes % (Manual) 7.5 % (13.4-35.0) L 07/16/16 15:58 Reactive Lymphs % (Man) 0 % 07/16/16 15:58 Monocytes % (Manual) 4.5 % (0.0-7.3) 07/16/16 15:58 Eosinophils % (Manual) 1.0 % (0.0-4.3) 07/16/16 15:58 Basophils % (Manual) 0.5 % (0.0-1.8) 07/16/16 15:58 Metamyelocytes % 0 % 07/16/16 15:58 Myelocytes % 0 % 07/16/16 15:58 Promyelocytes % 0 % 07/16/16 15:58 Blast Cells % 0 % 07/16/16 15:58 Nucleated RBC % Not Reportable 07/16/16 15:58 Seg Neutrophils # Man 19.8 K/mm3 (1.8-7.7) H 07/16/16 15:58 Band Neutrophils # 2.9 K/mm3 07/16/16 15:58 Lymphocytes # (Manual) 2.0 K/mm3 (1.2-5.4) 07/16/16 15:58 Abs React Lymphs (Man) 0.0 K/mm3 07/16/16 15:58 Monocytes # (Manual) 1.2 K/mm3 (0.0-0.8) H 07/16/16 15:58 Eosinophils # (Manual) 0.3 K/mm3 (0.0-0.4) 07/16/16 15:58 Basophils # (Manual) 0.1 K/mm3 (0.0-0.1) 07/16/16 15:58 Metamyelocytes # 0.0 K/mm3 07/16/16 15:58 Myelocytes # 0.0 K/mm3 07/16/16 15:58 Promyelocytes # 0.0 K/mm3 07/16/16 15:58 Blast Cells # 0.0 K/mm3 07/16/16 15:58 WBC Morphology Not Reportable 07/16/16 15:58 Hypersegmented Neuts Not Reportable 07/16/16 15:58 Hyposegmented Neuts Not Reportable 07/16/16 15:58 Hypogranular Neuts Not Reportable 07/16/16 15:58 Smudge Cells Not Reportable 07/16/16 15:58 Toxic Granulation Not Reportable 07/16/16 15:58 Toxic Vacuolation Not Reportable 07/16/16 15:58 Dohle Bodies Not Reportable 07/16/16 15:58 Pelger-Huet Anomaly Not Reportable 07/16/16 15:58 Jasmyn Rods Not Reportable 07/16/16 15:58 Platelet Estimate Cons 07/16/16 15:58 Clumped Platelets Not Reportable 07/16/16 15:58 Plt Clumps, EDTA Not Reportable 07/16/16 15:58 Large Platelets Not Reportable 07/16/16 15:58 Giant Platelets Few 07/16/16 15:58 Platelet Satelliting Not Reportable 07/16/16 15:58 Plt Morphology Comment Not Reportable 07/16/16 15:58 RBC Morphology Not Reportable 07/16/16 15:58 Dimorphic RBCs Not Reportable 07/16/16 15:58 Polychromasia Not Reportable 07/16/16 15:58 Hypochromasia 1+ 07/16/16 15:58 Poikilocytosis Not Reportable 07/16/16 15:58 Anisocytosis 1+ 07/16/16 15:58 Microcytosis Not Reportable 07/16/16 15:58 Macrocytosis Not Reportable 07/16/16 15:58 Spherocytes Not Reportable 07/16/16 15:58 Pappenheimer Bodies Not Reportable 07/16/16 15:58 Sickle Cells Not Reportable 07/16/16 15:58 Target Cells Not Reportable 07/16/16 15:58 Tear Drop Cells Not Reportable 07/16/16 15:58 Ovalocytes 1+ 07/16/16 15:58 Helmet Cells Not Reportable 07/16/16 15:58 Zaragoza-Decordova Bodies Not Reportable 07/16/16 15:58 Huntley Rings Not Reportable 07/16/16 15:58 Mariela Cells Not Reportable 07/16/16 15:58 Bite Cells Not Reportable 07/16/16 15:58 Crenated Cell Not Reportable 07/16/16 15:58 Elliptocytes Not Reportable 07/16/16 15:58 Acanthocytes (Spur) Not Reportable 07/16/16 15:58 Rouleaux Not Reportable 07/16/16 15:58 Hemoglobin C Crystals Not Reportable 07/16/16 15:58 Schistocytes Not Reportable 07/16/16 15:58 Malaria parasites Not Reportable 07/16/16 15:58 Papito Bodies Not Reportable 07/16/16 15:58 Hem Pathologist Commnt No 07/16/16 15:58 PT 13.6 Sec. (12.2-14.9) 07/16/16 17:02 INR 1.05 (0.87-1.13) 07/16/16 17:02 D-Dimer 497.53 ng/mlDDU (0-234) H 07/16/16 19:37 Sodium 142 mmol/L (137-145) 07/16/16 15:58 Potassium 4.1 mmol/L (3.6-5.0) 07/16/16 15:58 Chloride 96.9 mmol/L (98-107) L 07/16/16 15:58 Carbon Dioxide 32 mmol/L (22-30) H 07/16/16 15:58 Anion Gap 17 mmol/L 07/16/16 15:58 BUN 8 mg/dL (7-17) 07/16/16 15:58 Creatinine 0.9 mg/dL (0.7-1.2) 07/16/16 15:58 Estimated GFR > 60 ml/min 07/16/16 15:58 BUN/Creatinine Ratio 8.88 % 07/16/16 15:58 Glucose 273 mg/dL (65-100) H 07/16/16 15:58 POC Glucose 375 (70-105) H 07/18/16 11:27 Lactic Acid 1.50 mmol/L (0.7-2.0) 07/16/16 20:28 Calcium 8.9 mg/dL (8.4-10.2) 07/16/16 15:58 Total Creatine Kinase 125 units/L (30-135) 07/16/16 23:47 CK-MB (CK-2) 1.3 ng/mL (0.0-4.0) 07/16/16 23:47 CK-MB (CK-2) Rel Index 1.0 (0-4) 07/16/16 23:47 Troponin T < 0.010 ng/mL (0.00-0.029) 07/16/16 23:47 C-Reactive Protein 9.40 mg/dL (0.00-1.30) H 07/17/16 22:50 NT-Pro-B Natriuret Pep 629.7 pg/mL (0-900) 07/16/16 17:02 Triglycerides 184 mg/dL (2-149) H 07/16/16 18:31 Cholesterol 171 mg/dL (50-199) 07/16/16 18:31 LDL Cholesterol Direct 100 mg/dL (50-130) 07/16/16 18:31 HDL Cholesterol 35 mg/dL (40-59) L 07/16/16 18:31 Cholesterol/HDL Ratio 4.88 % 07/16/16 18:31
--- NOTE | 2016-07-18 19:18 | Consultation ---
CONSULTING PHYSICIAN: Dr. Gray. REASON FOR CONSULTATION: Respiratory failure. CHIEF COMPLAINT AND HISTORY OF PRESENT ILLNESS: The patient is a 61-year-old -[place] female known to me, past medical history significant amongst other things for a diagnosis of obstructive sleep apnea, on home CPAP, but also chronic obstructive lung disease, came into the Emergency Room complaining of chest pain. She had been seen by her primary care a few days earlier cleared and then developed upper respiratory type symptoms. She was given some Diflucan for possible oral thrush and she was taking that. She said she woke up on the day of presentation with a sharp pain in the right chest, was pleuritic in nature, it was constant. She was short of breath. She came into the Emergency Room, she was admitted as a result of the above. When I stopped by to see her, she was feeling better. She says she just got a breathing treatment. She was complaining mostly of her chronic pain issues. She denied any significant hemoptysis. She was coughing up greenish phlegm a little bit more than usual baseline. She was compliant with her medications at home. Denies any sick contacts. Denies running out of medications. Now, she is not a current smoker. I do believe she has a remote [id number] tobacco smoking history. This really is as much of the history of presentation as I have. I should mention she also denied any new onset of leg pain or swelling either unilaterally or bilaterally, or any suggestion of venous thromboembolic phenomenon. PAST MEDICAL HISTORY: Coronary artery disease, diabetes, cardiomyopathy, hypertension, metabolic syndrome, obstructive sleep apnea. She is obese. PAST SURGICAL HISTORY: She has had a renal stent placed. MEDICATIONS: She was on at the time I stopped by to see her, according to the medication administration record included the following: P.r.n. Tylenol, albuterol p.r.n., aspirin 81 mg p.o. daily, Lipitor 40 mg p.o. daily, Pulmicort 1 mg nebulized q.12 hours p.r.n. Dulcolax, Coreg 6.25 mg p.o. b.i.d., Colace 100 mg p.o. b.i.d., insulin via sliding scale, Levemir insulin 45 units subcutaneous at bedtime, Xalatan eyedrops 0.005%, scheduled to affected eye. Levaquin 750 mg IV daily p.r.n., milk of magnesia, moxifloxacin, hydrochloride drops to affected eye q.4h., Nevanac that is nepafenac 1 drop to affected eye q.4 hours, Nitrostat p.r.n., Zofran 4 mg IV q. 8 hours p.r.n. nausea, vomiting, Percocet 5/325 p.o. q.6 hours p.r.n., Zosyn 4.5 grams IV q.6h, Pred Forte 1% eye drops q.i.d., Lyrica 50 mg p.o. b.i.d., torsemide 60 mg p.o. q.a.m., Effexor 75 mg p.o. daily and Ambien 5 mg p.o. at bedtime p.r.n. insomnia. ALLERGIES: MOY INHIBITORS, AZITHROMYCIN, NEURONTIN, NATURE OF THIS ALLERGY IS UNKNOWN. DIET: Obese lady. No significant weight changes since I have last seen her. FAMILY AND SOCIAL HISTORY: Lives in the community. She has a remote about a [id number] tobacco smoking history. No current alcohol, tobacco, or illicit drug use or abuse. REVIEW OF SYSTEMS: No loss of consciousness. No new onset seizures. No new onset focal weakness. No gross hematochezia or melena. No gross hematuria or dysuria. No hematemesis. No hemoptysis. She had chest pain, no palpitations. Complete review of systems obtained. Pertinent positives and/or negatives as in body of history above, otherwise they are noncontributory. PHYSICAL EXAMINATION: VITAL SIGNS: At presentation, she was afebrile, temperature 98.1 Fahrenheit with a pulse of 108, respiratory rate of 22, blood pressure 121/65, oxygen sats 95%, inspired oxygen concentration was not recorded. HEAD, EYES, EARS, NOSE AND THROAT: Pupils are equal, round, about 3-4 mm, reactive to light. Extraocular muscle movements are intact. Grossly, no palpable lymph nodes in the supraclavicular or submandibular lymph node chains. LUNGS: Auscultation of both lung lerma, lungs are actually clear bilaterally. She does have diminished bilateral breath sounds with a prolonged expiratory phase. HEART: Sounds 1 and 2 are heard, regular rate and rhythm at the time of my evaluation. ABDOMEN: Soft, full, bowel sounds are positive, did not appear tender. EXTREMITIES: Without overt digital clubbing, or cyanosis. Trace pedal edema. NEUROLOGIC: The exam was grossly nonfocal. LABORATORY DATA: From my review are as follows: White cell count on admission 26,200 with a hemoglobin of 9.8, hematocrit of 32.0 and platelets of 352. INR 1.05, D-dimer was elevated at 497. Serum sodium 142, potassium 4.1, chloride 97, bicarbonate 32, BUN 8, creatinine 0.9, glucose 273. Lactic acid level was within normal limits. Troponin within normal limits. BNP actually within normal limits. RADIOGRAPHIC STUDIES: Trying to review them, trying to pull up the film. CTA of her chest was done that was read as negative for PE. No remarkable parenchymal abnormalities. Chest x-ray: Cardiomegaly, blunting of left costophrenic angle, perhaps a small pleural effusion, perhaps mild interstitial edema pattern. No gross pneumothorax, no gross bony fracture. No focal infiltrates consistent with pneumonia, otherwise. ASSESSMENT AND PLAN: We have an elderly lady in my opinion with an acute chronic obstructive pulmonary disease exacerbation. I note the leukocytosis, but she is intermittently being on steroids on the outpatient level. Respiratory conway, we will continue bronchodilators. She is on inhaled corticosteroids. We will add long acting bronchodilators. We will continue the p.r.n. albuterol, no indication for systemic steroids, oxygen should be weaned to keep sats greater than or equal to about 90%-92%. She should continue on CPAP therapy at bedtime. Acute coronary syndrome workup should be completed. I will deescalate antibiotics at this time. I think Levaquin monotherapy should be appropriate. I will get a CRP level and lactic acid level was unremarkable. She will be placed on gastrointestinal prophylaxis. Flu and pneumonia vaccination will be per protocol. Thank you very much for the consult, Dr. Gray. We will follow along and make further recommendations as picture progresses/becomes clearer. Hopefully, she can soon be discharged home, feeling better. JOB# [id number] CAMILA/RAMSES
[2016-07-18] MEDS: AMBIEN PO PRN (21:29)
--- NOTE | 2016-07-18 21:48 | Progress Note ---
Assessment and Plan Patient alert, awake.No acute respiratory distress. Resting on 2 litres O2. O2 satuaration 99%. About to go on CPAP. - Patient Problems (1) Acute and chronic respiratory failure ([id number]) Current Visit: No Status: Acute Qualifiers: Respiratory failure complication: hypoxia Qualified Code(s): J96.21 - Acute and chronic respiratory failure with hypoxia Plan to address problem: Continue CPAP as she is using at home Brovanna/Budesonide aerosol treatments q 12 hours. Albuterol aerosol treatments q 6 hours prn. Lovenox 40 mg S/C QD. Continue Levaquine. Continue protonix. (2) COPD with acute exacerbation Current Visit: Yes Status: Acute Plan to address problem: Brovanna/Budesonide aerosol treatments q 12 hours. Albuterol aerosol treatments q 6 hours prn. Lovenox 40 mg S/C QD. Continue Levaquine. Continue protonix. (3) MALATHI (obstructive sleep apnea) Current Visit: Yes Status: Acute Plan to address problem: Continue CPAP as she is using at home. (4) Morbid obesity Current Visit: No Status: Chronic Qualifiers: Obesity type: due to excess calories Qualified Code(s): E66.01 - Morbid ( severe) obesity due to excess calories Plan to address problem: Recommend to consult nutrition. Weight reduction diet. (5) Leg pain, bilateral Current Visit: No Status: Acute Plan to address problem: Patient takes percocet 10/325 mg Po q 6 hours prn. Patient currently 5/325 mg. Insisting to increase to 10/325 mg. Increasing percocet 10/325 mg q 8 hours prn for leg pain. (6) Diabetes Current Visit: No Status: Chronic Qualifiers: Diabetes mellitus type: type 2 Diabetes mellitus complication status: with hyperglycemia Diabetes mellitus complication detail: D Diabetic retinopathy severity: D Proliferative retinopathy type: P Diabetes mellitus macular edema: D Diabetes mellitus assisted insulin use: D Laterality: L Chronic kidney disease stage: C Qualified Code(s): E11.65 - Type 2 diabetes mellitus with hyperglycemia Plan to address problem: Management as per primary care. (7) Hypertension Current Visit: No Status: Chronic Qualifiers: Hypertension type: essential hypertension Qualified Code(s): I10 - Essential (primary) hypertension Plan to address problem: Management as per primary care. Subjective Date of service: 07/18/16 Interval history: Patient alert, awake.No acute respiratory distress. Resting on 2 litres O2. O2 satuaration 99%. About to go on CPAP. Objective Vital Signs - 12hr 07/18/16 07/18/16 07/18/16 09:50 10:00 10:20 Temperature Pulse Rate 78 91 H Pulse Rate [ 97 H Anterior Bilateral Throughout] Pulse Rate [ Right Radial] Respiratory 20 Rate Respiratory 18 Rate [Anterior Bilateral Throughout] Blood Pressure 145/67 Blood Pressure [Right Arm] O2 Sat by Pulse 99 Oximetry 07/18/16 07/18/16 07/18/16 10:40 12:00 17:15 Temperature 98.0 F Pulse Rate 90 Pulse Rate [ 88 Anterior Bilateral Throughout] Pulse Rate [ 96 H Right Radial] Respiratory 20 Rate Respiratory 18 Rate [Anterior Bilateral Throughout] Blood Pressure Blood Pressure 154/91 [Right Arm] O2 Sat by Pulse 100 Oximetry 07/18/16 07/18/16 20:00 21:29 Temperature 97.6 F Pulse Rate Pulse Rate [ 87 Anterior Bilateral Throughout] Pulse Rate [ 87 Right Radial] Respiratory 19 Rate Respiratory 16 Rate [Anterior Bilateral Throughout] Blood Pressure Blood Pressure 125/62 [Right Arm] O2 Sat by Pulse 96 Oximetry Constitutional: no acute distress, alert Eyes: non-icteric ENT: oropharynx moist Neck: supple, no lymphadenopathy Effort: normal Ascultation: Bilateral: diminished breath sounds Cardiovascular: regular rate and rhythm Gastrointestinal: normoactive bowel sounds, soft, non-tender Integumentary: normal Extremities: no cyanosis, edema Neurologic: normal mental status, non-focal exam, pupils equal and round, CN II- XII normal Psychiatric: other (Complaining pain in the back leg loints.) CBC and BMP: 07/16/16 15:58 07/16/16 15:58 ABG, PT/INR, D-dimer: PT/INR, D-dimer PT 13.6 Sec. (12.2-14.9) 07/16/16 17:02 INR 1.05 (0.87-1.13) 07/16/16 17:02 D-Dimer 497.53 ng/mlDDU (0-234) H 07/16/16 19:37 Abnormal lab findings: Abnormal Labs 07/16/16 07/16/16 07/16/16 18:31 19:37 20:28 D-Dimer 497.53 H POC Glucose Total Creatine Kinase 137 H C-Reactive Protein Triglycerides 184 H HDL Cholesterol 35 L 07/16/16 07/17/16 07/17/16 22:37 08:56 12:21 D-Dimer POC Glucose 202 H 320 H 345 H Total Creatine Kinase C-Reactive Protein Triglycerides HDL Cholesterol 07/17/16 07/17/16 07/17/16 16:23 20:46 22:50 D-Dimer POC Glucose 306 H 353 H Total Creatine Kinase C-Reactive Protein 9.40 H Triglycerides HDL Cholesterol 07/18/16 07/18/16 07/18/16 07:42 11:27 15:46 D-Dimer POC Glucose 262 H 375 H 278 H Total Creatine Kinase C-Reactive Protein Triglycerides HDL Cholesterol 07/18/16 20:31 D-Dimer POC Glucose 256 H Total Creatine Kinase C-Reactive Protein Triglycerides HDL Cholesterol
[2016-07-19 05:41] LABS: Hematocrit 30.9 % (30.3-42.9); Mean Corpuscular HGB Conc 33 % (30-34); Mean Corpuscular Hemoglobin 27 pg (28-32); Mean Corpuscular Volume 84 fl (79-97); Platelet Count 359 K/mm3 (140-440); Red Blood Count 3.67 M/mm3 (3.65-5.03); Red Cell Distribution Width 14.4 % (13.2-15.2)
[2016-07-19 05:56] LABS: Anion Gap 19 mmol/L; BUN/Creatinine Ratio 21.81; Blood Urea Nitrogen 24 mg/dL (7-17); Calcium 7.7 mg/dL (8.4-10.2); Carbon Dioxide 28 mmol/L (22-30); Chloride 95.9 mmol/L (98-107); Glucose 304 mg/dL (65-100); Sodium 139 mmol/L (137-145)
[2016-07-19 06:44] LABS: Blastocytes % (Manual) 0 %
[2016-07-19 06:45] LABS: Basophils % (Manual) 0 % (0.0-1.8); Diff Status Complete; Eosinophils % (Manual) 0 % (0.0-4.3); Platelet Estimate Consistent w Auto; RBC Morphology Normal
[2016-07-19] MEDS: ROBITUSSIN DM PO PRN ×2 (07:41→23:07)
[2016-07-19] MEDS: BROVANA NEBU IH SCH ×2 (08:25→20:54)
[2016-07-19] MEDS: PULMICORT IH SCH ×2 (08:25→22:49)
[2016-07-19] MEDS: NOVOLOG SUB-Q SCH ×4 (09:22→23:13)
[2016-07-19] MEDS: LEVEMIR SUB-Q SCH ×2 (09:22→23:08)
[2016-07-19] MEDS: PROTONIX PO SCH (09:24)
[2016-07-19] MEDS: COREG PO SCH ×2 (09:25→23:08)
[2016-07-19] MEDS: COLACE PO SCH ×2 (09:25→23:08)
[2016-07-19] MEDS: BABY ASPIRIN PO SCH (09:25)
[2016-07-19] MEDS: LYRICA PO SCH ×2 (09:26→23:07)
[2016-07-19] MEDS: EFFEXOR PO SCH (09:27)
[2016-07-19] MEDS: LOVENOX SUB-Q SCH (09:28)
[2016-07-19] MEDS: LEVAQUIN 750MG/150ML 750 MG/150 ML BAG IV SCH (09:30)
[2016-07-19] MEDS: DEMADEX PO SCH (09:57)
[2016-07-19] MEDS: PERCOCET 5/325 PO PRN ×3 (09:57→23:12)
[2016-07-19] MEDS: XANAX PO PRN ×3 (09:57→23:17)
[2016-07-19] MEDS: XALATAN 0.005% OU SCH ×4 (10:02→23:18)
[2016-07-19] MEDS: VIGAMOX OU SCH ×4 (10:03→23:18)
[2016-07-19] MEDS: PRED FORTE 1% OD SCH ×4 (10:04→23:14)
[2016-07-19] MEDS: NEVANAC OU SCH ×4 (10:05→23:08)
[2016-07-19 10:08] LABS: ISTAT Base Excess 8; ISTAT DEVICE 0; ISTAT HCO3 32.8; ISTAT PCO2 51.1 (35-45); ISTAT PH 7.416 (7.35-7.45); ISTAT PO2 63 (80-105); ISTAT SO2 92; ISTAT TCO2 34
[2016-07-19] MEDS: ROXICODONE PO PRN ×3 (10:08→23:09)
--- NOTE | 2016-07-19 10:15 | Progress Note ---
Assessment and Plan COPD exacerbation Chest pain, atypical [facility] 06/2013 demonstrated no significant coronary disease, ejection fraction 45 -50%. Echocardiogram 05/2014 reported a normal left ventricle systolic ejection fraction 55-60%. MPI 2016 at [facility] in [place], was negative. Obstructive sleep apnea Hypertension Diabetes Obesity Conservative cardiac management. Subjective Date of service: 07/19/16 Interval history: Patient complaints of shortness of breath. No distress noted. Objective Vital Signs Temp Pulse Pulse Pulse Pulse Resp Resp 07/19/16 08:25 91 H 20 07/19/16 07:42 97.6 F 86 20 07/19/16 04:00 98.4 F 82 20 07/19/16 00:38 97.8 F 92 H 23 07/18/16 22:45 72 20 07/18/16 22:00 07/18/16 21:29 87 16 07/18/16 20:00 97.6 F 90 87 19 07/18/16 17:15 98.0 F 96 H 20 07/18/16 12:00 90 07/18/16 10:40 88 18 07/18/16 10:20 97 H 18 BP Pulse Ox 07/19/16 08:25 07/19/16 07:42 153/75 94 07/19/16 04:00 157/74 96 07/19/16 00:38 125/60 95 07/18/16 22:45 97 07/18/16 22:00 95 07/18/16 21:29 07/18/16 20:00 125/62 96 07/18/16 17:15 154/91 100 07/18/16 12:00 07/18/16 10:40 07/18/16 10:20 - Physical Examination General: No Apparent Distress HEENT: Positive: PERRL Neck: Positive: trachea midline Cardiac: Positive: Reg Rate and Rhythm Lungs: Positive: Decreased Breath Sounds Neuro: Positive: Grossly Intact Abdomen: Positive: Soft Skin: Positive: Clear Extremities: Absent: edema - Labs and Meds CBC 07/19/16 Range/Units 03:19 WBC 15.0 H (4.5-11.0) K/mm3 RBC 3.67 (3.65-5.03) M/mm3 Hgb 10.0 L (10.1-14.3) gm/dl Hct 30.9 (30.3-42.9) % Plt Count 359 (140-440) K/mm3 Comprehensive Metabolic Panel 07/19/16 Range/Units 03:19 Sodium 139 (137-145) mmol/L Potassium 4.0 (3.6-5.0) mmol/L Chloride 95.9 L (98-107) mmol/L Carbon Dioxide 28 (22-30) mmol/L BUN 24 H (7-17) mg/dL Creatinine 1.1 (0.7-1.2) mg/dL Glucose 304 H (65-100) mg/dL Calcium 7.7 L (8.4-10.2) mg/dL
[2016-07-19 10:46] LABS: Bacteria,Urine 1+ /HPF (Negative); Bilirubin,Urine NEG (Negative); Blood,Urine NEG (Negative); Ketones,Urine NEG (Negative); Leukocyte Esterase,Urine NEG (Negative); Mucus,Urine FEW /HPF; Nitrite,Urine NEG (Negative); Protein,Urine <15 mg/dL mg/dL (Negative); Urobilinogen,Urine < 2.0 mg/dL (<2.0)
--- NOTE | 2016-07-19 12:04 | Progress Note ---
Assessment and Plan Assessment and plan: -- Acute on chronic hypoxic respiratory failure Multifactorial, COPD exacerbation, obstructive sleep apnea, obesity hypoventilation syndrome Symptoms significantly improved, continue nebulizers, tapering dose of IV steroids, antibiotics, inhalation steroids Chest CTA obtained to exclude PE (negative) Patient already has home oxygen -- Sepsis Leukocytosis, tachycardia, tachypnea Chest x-ray, blood cultures negative to date , likely due to corticosteroid use -- COPD ;Continue inhaled bronchodilators, supplemental oxygen, NIPPV, pulmonary toileting -MALATHI ;On CPAP at night Pulmonary following -- CAD ; continue aspirin and statin beta blockers No MOY inhibitor due to allergy Per Cardiology, she had extensive cardiac work up negative for ischemia -- HTN; well controlled -- Morbid obesity Counseling done advised her to modification and exercise as tolerated and weight reduction May benefit by outpatient by the [facility] surgical evaluation for weight reduction program then medically stable -- DVT prophylaxis with Lovenox Patient's symptoms significantly improved Possible discharge home tomorrow and follow up with primary care physician and emergency medcl emt upon discharge Plan of care discussed with the patient, her nurse as well as the case management History Interval history: Patient seen and evaluated medical records reviewed No new events reported by the nursing staff Denies any chest pain or shortness of breath Alert awake oriented 3 not in acute distress Hospitalist Physical - Constitutional Vitals: Temp Pulse Resp BP Pulse Ox 97.6 F 94 H 18 153/75 100 07/19/16 07:42 07/19/16 08:36 07/19/16 08:36 07/19/16 07:42 07/19/16 08:25 General appearance: Present: no acute distress, obese (morbid obesity) - EENT Eyes: Present: PERRL, EOM intact - Neck Neck: Present: supple, normal ROM - Respiratory Respiratory effort: normal Respiratory: bilateral: diminished, negative: rales, rhonchi, wheezing - Cardiovascular Rhythm: regular Heart Sounds: Present: S1 & S2 - Extremities Extremities: no ischemia, pulses intact, pulses symmetrical Peripheral Pulses: within normal limits - Abdominal General gastrointestinal: soft, non-tender, non-distended, normal bowel sounds - Integumentary Integumentary: Present: clear, warm - Psychiatric Psychiatric: appropriate mood/affect, cooperative - Neurologic Neurologic: CNII-XII intact, moves all extremities Results - Labs CBC & Chem 7: 07/19/16 03:19 07/19/16 03:19 Labs: Laboratory Last Values WBC 15.0 K/mm3 (4.5-11.0) H 07/19/16 03:19 RBC 3.67 M/mm3 (3.65-5.03) 07/19/16 03:19 Hgb 10.0 gm/dl (10.1-14.3) L 07/19/16 03:19 Hct 30.9 % (30.3-42.9) 07/19/16 03:19 MCV 84 fl (79-97) D 07/19/16 03:19 MCH 27 pg (28-32) L 07/19/16 03:19 MCHC 33 % (30-34) 07/19/16 03:19 RDW 14.4 % (13.2-15.2) 07/19/16 03:19 Plt Count 359 K/mm3 (140-440) 07/19/16 03:19 Add Manual Diff Complete 07/19/16 03:19 Total Counted 100 07/19/16 03:19 Seg Neuts % (Manual) 56.0 % (40.0-70.0) 07/19/16 03:19 Band Neutrophils % 6.0 % 07/19/16 03:19 Lymphocytes % (Manual) 28.0 % (13.4-35.0) 07/19/16 03:19 Reactive Lymphs % (Man) 0 % 07/19/16 03:19 Monocytes % (Manual) 10.0 % (0.0-7.3) H 07/19/16 03:19 Eosinophils % (Manual) 0 % (0.0-4.3) 07/19/16 03:19 Basophils % (Manual) 0 % (0.0-1.8) 07/19/16 03:19 Metamyelocytes % 0 % 07/19/16 03:19 Myelocytes % 0 % 07/19/16 03:19 Promyelocytes % 0 % 07/19/16 03:19 Blast Cells % 0 % 07/19/16 03:19 Nucleated RBC % Not Reportable 07/19/16 03:19 Seg Neutrophils # Man 8.4 K/mm3 (1.8-7.7) H 07/19/16 03:19 Band Neutrophils # 0.9 K/mm3 07/19/16 03:19 Lymphocytes # (Manual) 4.2 K/mm3 (1.2-5.4) 07/19/16 03:19 Abs React Lymphs (Man) 0.0 K/mm3 07/19/16 03:19 Monocytes # (Manual) 1.5 K/mm3 (0.0-0.8) H 07/19/16 03:19 Eosinophils # (Manual) 0.0 K/mm3 (0.0-0.4) 07/19/16 03:19 Basophils # (Manual) 0.0 K/mm3 (0.0-0.1) 07/19/16 03:19 Metamyelocytes # 0.0 K/mm3 07/19/16 03:19 Myelocytes # 0.0 K/mm3 07/19/16 03:19 Promyelocytes # 0.0 K/mm3 07/19/16 03:19 Blast Cells # 0.0 K/mm3 07/19/16 03:19 WBC Morphology Not Reportable 07/19/16 03:19 Hypersegmented Neuts Not Reportable 07/19/16 03:19 Hyposegmented Neuts Not Reportable 07/19/16 03:19 Hypogranular Neuts Not Reportable 07/19/16 03:19 Smudge Cells Not Reportable 07/19/16 03:19 Toxic Granulation Not Reportable 07/19/16 03:19 Toxic Vacuolation Not Reportable 07/19/16 03:19 Dohle Bodies Not Reportable 07/19/16 03:19 Pelger-Huet Anomaly Not Reportable 07/19/16 03:19 Jasmyn Rods Not Reportable 07/19/16 03:19 Platelet Estimate Consistent w auto 07/19/16 03:19 Clumped Platelets Not Reportable 07/19/16 03:19 Plt Clumps, EDTA Not Reportable 07/19/16 03:19 Large Platelets Not Reportable 07/19/16 03:19 Giant Platelets Not Reportable 07/19/16 03:19 Platelet Satelliting Not Reportable 07/19/16 03:19 Plt Morphology Comment Not Reportable 07/19/16 03:19 RBC Morphology Normal 07/19/16 03:19 Dimorphic RBCs Not Reportable 07/19/16 03:19 Polychromasia Not Reportable 07/19/16 03:19 Hypochromasia Not Reportable 07/19/16 03:19 Poikilocytosis Not Reportable 07/19/16 03:19 Anisocytosis Not Reportable 07/19/16 03:19 Microcytosis Not Reportable 07/19/16 03:19 Macrocytosis Not Reportable 07/19/16 03:19 Spherocytes Not Reportable 07/19/16 03:19 Pappenheimer Bodies Not Reportable 07/19/16 03:19 Sickle Cells Not Reportable 07/19/16 03:19 Target Cells Not Reportable 07/19/16 03:19 Tear Drop Cells Not Reportable 07/19/16 03:19 Ovalocytes Not Reportable 07/19/16 03:19 Helmet Cells Not Reportable 07/19/16 03:19 Zaragoza-[place] Bodies Not Reportable 07/19/16 03:19 [place] Rings Not Reportable 07/19/16 03:19 Mariela Cells Not Reportable 07/19/16 03:19 Bite Cells Not Reportable 07/19/16 03:19 Crenated Cell Not Reportable 07/19/16 03:19 Elliptocytes Not Reportable 07/19/16 03:19 Acanthocytes (Spur) Not Reportable 07/19/16 03:19 Rouleaux Not Reportable 07/19/16 03:19 Hemoglobin C Crystals Not Reportable 07/19/16 03:19 Schistocytes Not Reportable 07/19/16 03:19 Malaria parasites Not Reportable 07/19/16 03:19 Papito Bodies Not Reportable 07/19/16 03:19 Hem Pathologist Commnt No 07/19/16 03:19 PT 13.6 Sec. (12.2-14.9) 07/16/16 17:02 INR 1.05 (0.87-1.13) 07/16/16 17:02 D-Dimer 497.53 ng/mlDDU (0-234) H 07/16/16 19:37 POC ABG pH 7.416 (7.35-7.45) 07/19/16 09:43 POC ABG pCO2 51.1 (35-45) H 07/19/16 09:43 POC ABG pO2 63 (80-105) L 07/19/16 09:43 POC ABG HCO3 32.8 07/19/16 09:43 POC ABG Total CO2 34 07/19/16 09:43 POC ABG O2 Sat 92 07/19/16 09:43 POC ABG Base Excess 8 07/19/16 09:43 FiO2 21 % 07/19/16 09:43 Sodium 139 mmol/L (137-145) 07/19/16 03:19 Potassium 4.0 mmol/L (3.6-5.0) 07/19/16 03:19 Chloride 95.9 mmol/L (98-107) L 07/19/16 03:19 Carbon Dioxide 28 mmol/L (22-30) 07/19/16 03:19 Anion Gap 19 mmol/L 07/19/16 03:19 BUN 24 mg/dL (7-17) H 07/19/16 03:19 Creatinine 1.1 mg/dL (0.7-1.2) 07/19/16 03:19 Estimated GFR > 60 ml/min 07/19/16 03:19 BUN/Creatinine Ratio 21.81 % 07/19/16 03:19 Glucose 304 mg/dL (65-100) H 07/19/16 03:19 POC Glucose 256 (70-105) H 07/18/16 20:31 Lactic Acid 1.50 mmol/L (0.7-2.0) 07/16/16 20:28 Calcium 7.7 mg/dL (8.4-10.2) L 07/19/16 03:19 Total Creatine Kinase 125 units/L (30-135) 07/16/16 23:47 CK-MB (CK-2) 1.3 ng/mL (0.0-4.0) 07/16/16 23:47 CK-MB (CK-2) Rel Index 1.0 (0-4) 07/16/16 23:47 Troponin T < 0.010 ng/mL (0.00-0.029) 07/16/16 23:47 C-Reactive Protein 9.40 mg/dL (0.00-1.30) H 07/17/16 22:50 NT-Pro-B Natriuret Pep 629.7 pg/mL (0-900) 07/16/16 17:02 Triglycerides 184 mg/dL (2-149) H 07/16/16 18:31 Cholesterol 171 mg/dL (50-199) 07/16/16 18:31 LDL Cholesterol Direct 100 mg/dL (50-130) 07/16/16 18:31 HDL Cholesterol 35 mg/dL (40-59) L 07/16/16 18:31 Cholesterol/HDL Ratio 4.88 % 07/16/16 18:31 Urine Color Yellow (Yellow) 07/19/16 08:04 Urine Turbidity Cloudy (Clear) 07/19/16 08:04 Urine pH 5.0 (5.0-7.0) 07/19/16 08:04 Ur Specific [place] 1.017 (1.003-1.030) 07/19/16 08:04 Urine Protein <15 mg/dl mg/dL (Negative) 07/19/16 08:04 Urine Glucose (UA) 150 mg/dL (Negative) 07/19/16 08:04 Urine Ketones Neg mg/dL (Negative) 07/19/16 08:04 Urine Blood Neg (Negative) 07/19/16 08:04 Urine Nitrite Neg (Negative) 07/19/16 08:04 Urine Bilirubin Neg (Negative) 07/19/16 08:04 Urine Urobilinogen < 2.0 mg/dL (<2.0) 07/19/16 08:04 Ur Leukocyte Esterase Neg (Negative) 07/19/16 08:04 Urine WBC (Auto) 32.0 /HPF (0.0-6.0) H 07/19/16 08:04 Urine RBC (Auto) 12.0 /HPF (0.0-6.0) 07/19/16 08:04 U Epithel Cells (Auto) 9.0 /HPF (0-13.0) 07/19/16 08:04 Urine Bacteria (Auto) 1+ /HPF (Negative) 07/19/16 08:04 Urine Mucus Few /HPF 07/19/16 08:04
--- NOTE | 2016-07-19 19:17 | Progress Note ---
Assessment and Plan Patient still complaining shortness of breath and wheezing. Still coughing up green sputum. Complaining sore throat and right ear ache.Presently on room air. O2 satuaration reported 99%. - Patient Problems (1) Acute and chronic respiratory failure ([id number]) Current Visit: No Status: Acute Qualifiers: Respiratory failure complication: hypoxia Qualified Code(s): J96.21 - Acute and chronic respiratory failure with hypoxia Plan to address problem: Continue CPAP as she is using at home Brovanna/Budesonide aerosol treatments q 12 hours. Albuterol aerosol treatments q 6 hours prn. Lovenox 40 mg S/C QD. Continue Levaquine. Continue protonix. Adding solumedral 40 mg I/V q 12 hours. (2) COPD with acute exacerbation Current Visit: Yes Status: Acute Plan to address problem: Brovanna/Budesonide aerosol treatments q 12 hours. Albuterol aerosol treatments q 6 hours prn. Lovenox 40 mg S/C QD. Continue Levaquine. Continue protonix. Adding I/V solumedral 40 mg q 12 hours. (3) MALATHI (obstructive sleep apnea) Current Visit: Yes Status: Acute Plan to address problem: Continue CPAP as she is using at home. (4) Morbid obesity Current Visit: No Status: Chronic Qualifiers: Obesity type: due to excess calories Qualified Code(s): E66.01 - Morbid ( severe) obesity due to excess calories Plan to address problem: Recommend to consult nutrition. Weight reduction diet. (5) Leg pain, bilateral Current Visit: No Status: Acute Plan to address problem: Patient takes percocet 10/325 mg Po q 6 hours prn. Patient currently 5/325 mg. Insisting to increase to 10/325 mg. Increasing percocet 10/325 mg q 8 hours prn for leg pain. (6) Diabetes Current Visit: No Status: Chronic Qualifiers: Diabetes mellitus type: type 2 Diabetes mellitus complication status: with hyperglycemia Diabetes mellitus complication detail: D Diabetic retinopathy severity: D Proliferative retinopathy type: P Diabetes mellitus macular edema: D Diabetes mellitus care home insulin use: D Laterality: L Chronic kidney disease stage: C Plan to address problem: Management as per primary care. (7) Hypertension Current Visit: No Status: Chronic Qualifiers: Hypertension type: essential hypertension Qualified Code(s): I10 - Essential (primary) hypertension Plan to address problem: Management as per primary care. Subjective Date of service: 07/19/16 Interval history: Patient still complaining shortness of breath and wheezing. Still coughing up green sputum. Complaining sore throat and right ear ache.Presently on room air. O2 satuaration reported 99%. Objective Vital Signs - 12hr 07/19/16 07/19/16 07/19/16 07:42 08:25 08:36 Temperature 97.6 F Pulse Rate [ 91 H 94 H Anterior Bilateral Throughout] Pulse Rate [ 86 Right Radial] Respiratory 20 Rate Respiratory 20 18 Rate [Anterior Bilateral Throughout] Blood Pressure 153/75 [Right Arm] O2 Sat by Pulse 94 100 Oximetry 07/19/16 07/19/16 12:19 16:49 Temperature 97.8 F 97.9 F Pulse Rate [ Anterior Bilateral Throughout] Pulse Rate [ 95 H 86 Right Radial] Respiratory 20 20 Rate Respiratory Rate [Anterior Bilateral Throughout] Blood Pressure 138/62 139/65 [Right Arm] O2 Sat by Pulse 97 99 Oximetry Constitutional: no acute distress, alert Eyes: non-icteric ENT: oropharynx moist Neck: supple, no lymphadenopathy Effort: normal Ascultation: Bilateral: diminished breath sounds Cardiovascular: regular rate and rhythm Gastrointestinal: normoactive bowel sounds, soft, non-tender Integumentary: normal Extremities: no cyanosis, edema Neurologic: normal mental status, non-focal exam, pupils equal and round, CN II- XII normal Psychiatric: other (Complaining pain in the back leg loints.) CBC and BMP: 07/19/16 03:19 07/19/16 03:19 ABG, PT/INR, D-dimer: ABG POC ABG pH 7.416 (7.35-7.45) 07/19/16 09:43 POC ABG pCO2 51.1 (35-45) H 07/19/16 09:43 POC ABG pO2 63 (80-105) L 07/19/16 09:43 POC ABG HCO3 32.8 07/19/16 09:43 POC ABG Total CO2 34 07/19/16 09:43 POC ABG O2 Sat 92 07/19/16 09:43 PT/INR, D-dimer PT 13.6 Sec. (12.2-14.9) 07/16/16 17:02 INR 1.05 (0.87-1.13) 07/16/16 17:02 D-Dimer 497.53 ng/mlDDU (0-234) H 07/16/16 19:37 Abnormal lab findings: Abnormal Labs 07/16/16 07/16/16 07/16/16 18:31 19:37 20:28 WBC Hgb MCH Monocytes % (Manual) Seg Neutrophils # Man Monocytes # (Manual) D-Dimer 497.53 H POC ABG pCO2 POC ABG pO2 Chloride BUN Glucose POC Glucose Calcium Total Creatine Kinase 137 H C-Reactive Protein Triglycerides 184 H HDL Cholesterol 35 L Urine WBC (Auto) 07/16/16 07/17/16 07/17/16 22:37 08:56 12:21 WBC Hgb MCH Monocytes % (Manual) Seg Neutrophils # Man Monocytes # (Manual) D-Dimer POC ABG pCO2 POC ABG pO2 Chloride BUN Glucose POC Glucose 202 H 320 H 345 H Calcium Total Creatine Kinase C-Reactive Protein Triglycerides HDL Cholesterol Urine WBC (Auto) 07/17/16 07/17/16 07/17/16 16:23 20:46 22:50 WBC Hgb MCH Monocytes % (Manual) Seg Neutrophils # Man Monocytes # (Manual) D-Dimer POC ABG pCO2 POC ABG pO2 Chloride BUN Glucose POC Glucose 306 H 353 H Calcium Total Creatine Kinase C-Reactive Protein 9.40 H Triglycerides HDL Cholesterol Urine WBC (Auto) 07/18/16 07/18/16 07/18/16 07:42 11:27 15:46 WBC Hgb MCH Monocytes % (Manual) Seg Neutrophils # Man Monocytes # (Manual) D-Dimer POC ABG pCO2 POC ABG pO2 Chloride BUN Glucose POC Glucose 262 H 375 H 278 H Calcium Total Creatine Kinase C-Reactive Protein Triglycerides HDL Cholesterol Urine WBC (Auto) 07/18/16 07/19/16 07/19/16 20:31 03:19 03:19 WBC 15.0 H Hgb 10.0 L MCH 27 L Monocytes % (Manual) 10.0 H Seg Neutrophils # Man 8.4 H Monocytes # (Manual) 1.5 H D-Dimer POC ABG pCO2 POC ABG pO2 Chloride 95.9 L BUN 24 H Glucose 304 H POC Glucose 256 H Calcium 7.7 L Total Creatine Kinase C-Reactive Protein Triglycerides HDL Cholesterol Urine WBC (Auto) 07/19/16 07/19/16 07/19/16 07:42 08:04 09:43 WBC Hgb MCH Monocytes % (Manual) Seg Neutrophils # Man Monocytes # (Manual) D-Dimer POC ABG pCO2 51.1 H POC ABG pO2 63 L Chloride BUN Glucose POC Glucose 274 H Calcium Total Creatine Kinase C-Reactive Protein Triglycerides HDL Cholesterol Urine WBC (Auto) 32.0 H 07/19/16 07/19/16 11:49 15:57 WBC Hgb MCH Monocytes % (Manual) Seg Neutrophils # Man Monocytes # (Manual) D-Dimer POC ABG pCO2 POC ABG pO2 Chloride BUN Glucose POC Glucose 322 H 255 H Calcium Total Creatine Kinase C-Reactive Protein Triglycerides HDL Cholesterol Urine WBC (Auto)
[2016-07-19] MEDS ORDERED: CEPACOL X STRENGTH MM PRN (19:34)
[2016-07-19] MEDS: AMBIEN PO PRN (23:07)
[2016-07-20] MEDS: LEVEMIR SUB-Q SCH (08:18)
[2016-07-20] MEDS: BROVANA NEBU IH SCH (08:38)
[2016-07-20] MEDS: PULMICORT IH SCH (09:07)
--- NOTE | 2016-07-20 09:59 | Progress Note ---
Assessment and Plan COPD exacerbation Chest pain, atypical [facility] 06/2013 demonstrated no significant coronary disease, ejection fraction 45 -50%. Echocardiogram 05/2014 reported a normal left ventricle systolic ejection fraction 55-60%. MPI 2016 at [facility] in [place], was negative. Obstructive sleep apnea Hypertension Diabetes Obesity Conservative cardiac management. Subjective Date of service: 07/20/16 Interval history: Patient reports shortness of breath is improving. Objective Vital Signs Temp Pulse Pulse Pulse Pulse Resp Resp 07/20/16 09:09 98.3 F 92 H 18 07/20/16 05:55 99 F 53 L 21 07/20/16 00:00 97.9 F 94 H 20 07/19/16 22:00 92 H 07/19/16 20:10 97.8 F 95 H 94 H 20 18 07/19/16 20:00 94 H 18 07/19/16 16:49 97.9 F 86 20 07/19/16 12:19 97.8 F 95 H 20 BP Pulse Ox 07/20/16 09:09 146/67 95 07/20/16 05:55 177/85 97 07/20/16 00:00 146/67 94 07/19/16 22:00 95 07/19/16 20:10 117/68 93 07/19/16 20:00 07/19/16 16:49 139/65 99 07/19/16 12:19 138/62 97 - Physical Examination General: No Apparent Distress HEENT: Positive: PERRL Neck: Positive: trachea midline Cardiac: Positive: Reg Rate and Rhythm Lungs: Positive: Decreased Breath Sounds Neuro: Positive: Grossly Intact Extremities: Absent: edema
[2016-07-20] MEDS ORDERED: LEVAQUIN PO SCH (10:00)
[2016-07-20] MEDS: PROTONIX PO SCH (10:34)
[2016-07-20] MEDS: LYRICA PO SCH (10:34)
[2016-07-20] MEDS: LOVENOX SUB-Q SCH (10:34)
[2016-07-20] MEDS: EFFEXOR PO SCH (10:35)
[2016-07-20] MEDS: COREG PO SCH (10:35)
[2016-07-20] MEDS: BABY ASPIRIN PO SCH (10:35)
[2016-07-20] MEDS: COLACE PO SCH (10:35)
[2016-07-20] MEDS: DEMADEX PO SCH (10:35)
[2016-07-20] MEDS: NOVOLOG SUB-Q SCH ×2 (10:39→13:44)
[2016-07-20] MEDS: NEVANAC OU SCH ×2 (10:39→13:44)
[2016-07-20] MEDS: VIGAMOX OU SCH ×2 (10:40→13:44)
[2016-07-20] MEDS: PRED FORTE 1% OD SCH ×2 (10:40→13:44)
[2016-07-20] MEDS: XANAX PO PRN (10:57)
[2016-07-20] MEDS: ROXICODONE PO PRN (10:57)
[2016-07-20] MEDS: PERCOCET 5/325 PO PRN (10:57)
[2016-07-20] MEDS: XALATAN 0.005% OU SCH ×2 (11:04→13:45)
[2016-07-20 14:18] VITALS: BP 165/74
--- NOTE | 2016-07-20 21:36 | Progress Note ---
Hospitalist Physical - Constitutional Vitals: Temp Pulse Resp BP Pulse Ox 97.6 F 95 H 20 165/74 100 07/20/16 14:13 07/20/16 14:13 07/20/16 14:13 07/20/16 14:13 07/20/16 14:13 General appearance: Present: no acute distress, obese (morbid obesity) Results - Labs CBC & Chem 7: 07/19/16 03:19 07/19/16 03:19 Labs: Laboratory Last Values WBC 15.0 K/mm3 (4.5-11.0) H 07/19/16 03:19 RBC 3.67 M/mm3 (3.65-5.03) 07/19/16 03:19 Hgb 10.0 gm/dl (10.1-14.3) L 07/19/16 03:19 Hct 30.9 % (30.3-42.9) 07/19/16 03:19 MCV 84 fl (79-97) D 07/19/16 03:19 MCH 27 pg (28-32) L 07/19/16 03:19 MCHC 33 % (30-34) 07/19/16 03:19 RDW 14.4 % (13.2-15.2) 07/19/16 03:19 Plt Count 359 K/mm3 (140-440) 07/19/16 03:19 Add Manual Diff Complete 07/19/16 03:19 Total Counted 100 07/19/16 03:19 Seg Neuts % (Manual) 56.0 % (40.0-70.0) 07/19/16 03:19 Band Neutrophils % 6.0 % 07/19/16 03:19 Lymphocytes % (Manual) 28.0 % (13.4-35.0) 07/19/16 03:19 Reactive Lymphs % (Man) 0 % 07/19/16 03:19 Monocytes % (Manual) 10.0 % (0.0-7.3) H 07/19/16 03:19 Eosinophils % (Manual) 0 % (0.0-4.3) 07/19/16 03:19 Basophils % (Manual) 0 % (0.0-1.8) 07/19/16 03:19 Metamyelocytes % 0 % 07/19/16 03:19 Myelocytes % 0 % 07/19/16 03:19 Promyelocytes % 0 % 07/19/16 03:19 Blast Cells % 0 % 07/19/16 03:19 Nucleated RBC % Not Reportable 07/19/16 03:19 Seg Neutrophils # Man 8.4 K/mm3 (1.8-7.7) H 07/19/16 03:19 Band Neutrophils # 0.9 K/mm3 07/19/16 03:19 Lymphocytes # (Manual) 4.2 K/mm3 (1.2-5.4) 07/19/16 03:19 Abs React Lymphs (Man) 0.0 K/mm3 07/19/16 03:19 Monocytes # (Manual) 1.5 K/mm3 (0.0-0.8) H 07/19/16 03:19 Eosinophils # (Manual) 0.0 K/mm3 (0.0-0.4) 07/19/16 03:19 Basophils # (Manual) 0.0 K/mm3 (0.0-0.1) 07/19/16 03:19 Metamyelocytes # 0.0 K/mm3 07/19/16 03:19 Myelocytes # 0.0 K/mm3 07/19/16 03:19 Promyelocytes # 0.0 K/mm3 07/19/16 03:19 Blast Cells # 0.0 K/mm3 07/19/16 03:19 WBC Morphology Not Reportable 07/19/16 03:19 Hypersegmented Neuts Not Reportable 07/19/16 03:19 Hyposegmented Neuts Not Reportable 07/19/16 03:19 Hypogranular Neuts Not Reportable 07/19/16 03:19 Smudge Cells Not Reportable 07/19/16 03:19 Toxic Granulation Not Reportable 07/19/16 03:19 Toxic Vacuolation Not Reportable 07/19/16 03:19 Dohle Bodies Not Reportable 07/19/16 03:19 Pelger-Huet Anomaly Not Reportable 07/19/16 03:19 Jasmyn Rods Not Reportable 07/19/16 03:19 Platelet Estimate Consistent w auto 07/19/16 03:19 Clumped Platelets Not Reportable 07/19/16 03:19 Plt Clumps, EDTA Not Reportable 07/19/16 03:19 Large Platelets Not Reportable 07/19/16 03:19 Giant Platelets Not Reportable 07/19/16 03:19 Platelet Satelliting Not Reportable 07/19/16 03:19 Plt Morphology Comment Not Reportable 07/19/16 03:19 RBC Morphology Normal 07/19/16 03:19 Dimorphic RBCs Not Reportable 07/19/16 03:19 Polychromasia Not Reportable 07/19/16 03:19 Hypochromasia Not Reportable 07/19/16 03:19 Poikilocytosis Not Reportable 07/19/16 03:19 Anisocytosis Not Reportable 07/19/16 03:19 Microcytosis Not Reportable 07/19/16 03:19 Macrocytosis Not Reportable 07/19/16 03:19 Spherocytes Not Reportable 07/19/16 03:19 Pappenheimer Bodies Not Reportable 07/19/16 03:19 Sickle Cells Not Reportable 07/19/16 03:19 Target Cells Not Reportable 07/19/16 03:19 Tear Drop Cells Not Reportable 07/19/16 03:19 Ovalocytes Not Reportable 07/19/16 03:19 Helmet Cells Not Reportable 07/19/16 03:19 [place] Bodies Not Reportable 07/19/16 03:19 [place] Rings Not Reportable 07/19/16 03:19 [place] Cells Not Reportable 07/19/16 03:19 Bite Cells Not Reportable 07/19/16 03:19 Crenated Cell Not Reportable 07/19/16 03:19 Elliptocytes Not Reportable 07/19/16 03:19 Acanthocytes (Spur) Not Reportable 07/19/16 03:19 Rouleaux Not Reportable 07/19/16 03:19 Hemoglobin C Crystals Not Reportable 07/19/16 03:19 Schistocytes Not Reportable 07/19/16 03:19 Malaria parasites Not Reportable 07/19/16 03:19 Papito Bodies Not Reportable 07/19/16 03:19 Hem Pathologist Commnt No 07/19/16 03:19 PT 13.6 Sec. (12.2-14.9) 07/16/16 17:02 INR 1.05 (0.87-1.13) 07/16/16 17:02 D-Dimer 497.53 ng/mlDDU (0-234) H 07/16/16 19:37 POC ABG pH 7.416 (7.35-7.45) 07/19/16 09:43 POC ABG pCO2 51.1 (35-45) H 07/19/16 09:43 POC ABG pO2 63 (80-105) L 07/19/16 09:43 POC ABG HCO3 32.8 07/19/16 09:43 POC ABG Total CO2 34 07/19/16 09:43 POC ABG O2 Sat 92 07/19/16 09:43 POC ABG Base Excess 8 07/19/16 09:43 FiO2 21 % 07/19/16 09:43 Sodium 139 mmol/L (137-145) 07/19/16 03:19 Potassium 4.0 mmol/L (3.6-5.0) 07/19/16 03:19 Chloride 95.9 mmol/L (98-107) L 07/19/16 03:19 Carbon Dioxide 28 mmol/L (22-30) 07/19/16 03:19 Anion Gap 19 mmol/L 07/19/16 03:19 BUN 24 mg/dL (7-17) H 07/19/16 03:19 Creatinine 1.1 mg/dL (0.7-1.2) 07/19/16 03:19 Estimated GFR > 60 ml/min 07/19/16 03:19 BUN/Creatinine Ratio 21.81 % 07/19/16 03:19 Glucose 304 mg/dL (65-100) H 07/19/16 03:19 POC Glucose 265 (70-105) H 07/19/16 20:45 Lactic Acid 1.50 mmol/L (0.7-2.0) 07/16/16 20:28 Calcium 7.7 mg/dL (8.4-10.2) L 07/19/16 03:19 Total Creatine Kinase 125 units/L (30-135) 07/16/16 23:47 CK-MB (CK-2) 1.3 ng/mL (0.0-4.0) 07/16/16 23:47 CK-MB (CK-2) Rel Index 1.0 (0-4) 07/16/16 23:47 Troponin T < 0.010 ng/mL (0.00-0.029) 07/16/16 23:47 C-Reactive Protein 9.40 mg/dL (0.00-1.30) H 07/17/16 22:50 NT-Pro-B Natriuret Pep 629.7 pg/mL (0-900) 07/16/16 17:02 Triglycerides 184 mg/dL (2-149) H 07/16/16 18:31 Cholesterol 171 mg/dL (50-199) 07/16/16 18:31 LDL Cholesterol Direct 100 mg/dL (50-130) 07/16/16 18:31 HDL Cholesterol 35 mg/dL (40-59) L 07/16/16 18:31 Cholesterol/HDL Ratio 4.88 % 07/16/16 18:31 Urine Color Yellow (Yellow) 07/19/16 08:04 Urine Turbidity Cloudy (Clear) 07/19/16 08:04 Urine pH 5.0 (5.0-7.0) 07/19/16 08:04 Ur Specific [place] 1.017 (1.003-1.030) 07/19/16 08:04 Urine Protein <15 mg/dl mg/dL (Negative) 07/19/16 08:04 Urine Glucose (UA) 150 mg/dL (Negative) 07/19/16 08:04 Urine Ketones Neg mg/dL (Negative) 07/19/16 08:04 Urine Blood Neg (Negative) 07/19/16 08:04 Urine Nitrite Neg (Negative) 07/19/16 08:04 Urine Bilirubin Neg (Negative) 07/19/16 08:04 Urine Urobilinogen < 2.0 mg/dL (<2.0) 07/19/16 08:04 Ur Leukocyte Esterase Neg (Negative) 07/19/16 08:04 Urine WBC (Auto) 32.0 /HPF (0.0-6.0) H 07/19/16 08:04 Urine RBC (Auto) 12.0 /HPF (0.0-6.0) 07/19/16 08:04 U Epithel Cells (Auto) 9.0 /HPF (0-13.0) 07/19/16 08:04 Urine Bacteria (Auto) 1+ /HPF (Negative) 07/19/16 08:04 Urine Mucus Few /HPF 07/19/16 08:04
--- NOTE | 2016-07-20 21:37 | Discharge Summary ---
Providers - Providers Date of Admission: 07/16/16 17:58 Date of discharge: 07/27/16 Attending physician: IVORY COON 07/16/16 18:56 Consult to Physician [CONS] Routine Consulting Provider: RICHARD GRIGSBY Reason For Exam: resp failure Place consult to:: Dr. Neff Notified:: Renay RN Phone number called:: Was contact made?: Yes If yes, spoke with:: [facility]-answering service Time called:: 09:06 Primary care physician: [employer] Hospitalization Condition: Good Disposition: LEFT AGAINST MEDICAL ADVICE Exam - Constitutional Vitals: Temp Pulse Resp BP Pulse Ox 97.6 F 95 H 20 165/74 100 07/20/16 14:13 07/20/16 14:13 07/20/16 14:13 07/20/16 14:13 07/20/16 14:13 Plan Follow up with: PRIMARY CAREMD [Primary Care Provider] - 3-5 Days Forms: AMA Form
== END 2016-07-20 17:50 | disposition left against medical advice (07) | DRG 871 ==
LOC: ED 15:10 → 4A 17:58
PROVIDERS: ADMIT Internal Medicine; ATTEND Internal Medicine
PROC: 4A033R1 Measurement of Arterial Saturation, Peripheral, Percutaneous Approach (ICD-10-PCS; principal; 2016-07-19)
DX: A41.9 Sepsis, unspecified organism (principal); J96.21 Acute and chronic respiratory failure with hypoxia; I24.9 Acute ischemic heart disease, unspecified; J44.1 Chronic obstructive pulmonary disease with (acute) exacerbation; Z68.43 Body mass index [BMI] 50.0-59.9, adult; E11.9 Type 2 diabetes mellitus without complications; M19.90 Unspecified osteoarthritis, unspecified site; I25.10 Atherosclerotic heart disease of native coronary artery without angina pectoris; E88.81 Metabolic syndrome and other insulin resistance; E66.01 Morbid (severe) obesity due to excess calories; I50.9 Heart failure, unspecified; I11.0 Hypertensive heart disease with heart failure; Z79.82 Long term (current) use of aspirin; Z79.4 Long term (current) use of insulin; Z79.899 Other long term (current) drug therapy; Z88.8 Allergy status to other drugs, medicaments and biological substances; Z86.11 Personal history of tuberculosis; Z95.1 Presence of aortocoronary bypass graft; Z83.3 Family history of diabetes mellitus; Z82.49 Family history of ischemic heart disease and other diseases of the circulatory system; Z88.1 Allergy status to other antibiotic agents
CPT/HCPCS: 36415; 36600; 71010; 71275; 80048; 80061; 81001; 82140; 82550; 82553; 82803; 82962; 83880; 84484; 85007; 85025; 85379; 85610; 86140; 87040; 87205; 93005; 93010; 93306; 94640; 94760; 96365; 96366; 96375; A9270-GY; J1650; J1815; J1818; J1885; J1956; J2543; J2920; J2930; J3475; J7030; Q9967

== ENCOUNTER 2017-02-04 03:36 | Emergency (ER) | payer MEDICARE ==
[2017-02-04 04:44] LABS: Basophils % (Auto) 0.4 % (0.0-1.8); Eosinophils % (Auto) 1.5 % (0.0-4.3); Hematocrit 38.5 % (30.3-42.9); Hemoglobin 12.1 gm/dl (10.1-14.3); Mean Corpuscular HGB Conc 31 % (30-34); Mean Corpuscular Hemoglobin 26 pg (28-32); Mean Corpuscular Volume 84 fl (79-97); Platelet Count 367 K/mm3 (140-440); Red Blood Count 4.58 M/mm3 (3.65-5.03); Red Cell Distribution Width 14.7 % (13.2-15.2); White Blood Count 16.8 K/mm3 (4.5-11.0)
[2017-02-04 04:54] LABS: INR 0.86 (0.87-1.13)
[2017-02-04 04:58] LABS: Alanine Aminotransferase 9 units/L (7-56); Albumin 3.8 g/dL (3.9-5); Albumin/Globulin Ratio 0.8 %; Alkaline Phosphatase 98 units/L (35-129); Anion Gap 15 mmol/L; BUN/Creatinine Ratio 24; Blood Urea Nitrogen 22 mg/dL (7-17); Calcium 9.2 mg/dL (8.4-10.2); Carbon Dioxide 32 mmol/L (22-30); Glucose 246 mg/dL (65-100); Lipase 18 units/L (13-60); Potassium 3.2 mmol/L (3.6-5.0); Sodium 139 mmol/L (137-145); Total Protein 8.5 g/dL (6.3-8.2)
--- NOTE | 2017-02-04 05:37 | XRay Report ---
FINAL REPORT PROCEDURE: XR CHEST 1V AP TECHNIQUE: Chest radiograph anteroposterior view. CPT 75165 HISTORY: Chest Pain COMPARISON: 07/16/2016 FINDINGS: Heart: Normal. Mediastinum/Vessels: Normal. Lungs/Pleural space: Normal. Bony thorax: No acute osseous abnormality. Life support devices: None. IMPRESSION: No acute cardiopulmonary abnormality.
[2017-02-04] MEDS ORDERED: ZOFRAN IV ONE (07:15)
[2017-02-04] MEDS ORDERED: DILAUDID IV ONE ×3 (07:15→12:57)
[2017-02-04] MEDS ORDERED: TORADOL IV ONE (07:15)
[2017-02-04] MEDS ORDERED: NACL ONE (07:24)
[2017-02-04] MEDS ORDERED: K-DUR PO ONE (07:38)
--- NOTE | 2017-02-04 07:38 | Emergency Department Report ---
ED General Adult HPI - General Chief complaint: Chest Pain Stated complaint: CHEST PAIN Time Seen by Provider: 02/04/17 06:55 Source: patient, EMS, old records reviewed Mode of arrival: Stretcher Limitations: No Limitations - History of Present Illness Initial comments: 61-year-old female with a past medical history morbid obesity, arthritis, CHF, COPD with O2 dependence 2 L, diabetes with history of neuropathy, hypertension, kidney stones, vertigo, and sleep apnea presents to the hospital multitude of complaints. 4 days ago patient began having nausea and decreased appetite. Patient felt like her nasal cannula was irritating her nose like she was getting too much oxygen. As night patient developed sharp sternal and right- sided chest pain radiating to the right shoulder. Pain is constant, worse with palpation and movement. Mild associated shortness of breath. Patient also states that during initiation of pain she had carpopedal spasms. She now complains of a constant vibration type of pain to her lower extremities. She has a history of diabetic neuropathy with decreased sensation to her feet. Now she complains of decreased sensation extending up her leg and bilateral leg weakness. Patient has chronic ongoing back pain and for the last 3 weeks has had some mild urinary incontinence. Patient states a diuretic pill makes it worse and she can't make it to the bathroom and sometimes doesn't really like she has to go until she feels her bladder leak. The patient has had a history of difficulty ambulating in the past and weakness secondary to neuropathy by physical therapy. Patient has been admitted here several times previously. Most recent admission and signed out AMA prior to receiving stress test appears to have a history of requesting multiple narcotic medications. Pt typically takes percocet and norco for pain Severity scale (0 -10): 8 - Related Data Home Medications Medication Instructions Recorded Confirmed Last Taken Latanoprost 1 drop OU Q4H 05/09/16 05/09/16 Unknown Nepafenac [Ilevro 0.3%] 1 drop OD Q4H 05/09/16 05/09/16 Unknown Previous Rx's Medication Instructions Recorded Last Taken Type Acetaminophen [Acetaminophen TAB] 650 mg PO Q4H PRN #10 tablet 05/11/16 Unknown Rx Amoxicillin/K Clav Tab [Augmentin 1 each PO Q12HR #10 tablet 05/11/16 Unknown Rx 875MG TAB] Arformoterol Nebu [Brovana Nebu] 15 mcg IH Q12HRT #30 unit 05/11/16 Unknown Rx Aspirin [Aspirin BABY CHEW TAB] 81 mg PO QDAY #30 tab.chew 05/11/16 05/06/16 Rx AtorvaSTATin [Lipitor] 40 mg PO DAILY #30 tablet 05/11/16 Unknown Rx Budesonide [Pulmicort Respules] 1 mg IH Q12HRT #30 nebu 05/11/16 Unknown Rx Carvedilol [Coreg] 25 mg PO Q12HR #60 tablet 05/11/16 Unknown Rx Fluconazole [Diflucan TAB] 100 mg PO ONCE PRN #2 tablet 05/11/16 Unknown Rx HYDROcodone/APAP 10-325 [[place] 1 each PO Q6H PRN #30 tablet 05/11/16 Unknown Rx 10-325 mg TAB] Insulin Detemir [Levemir] 40 units SUB-Q QAMDIAB #30 day 05/11/16 Unknown Rx Insulin Detemir [Levemir] 45 units SUB-Q QHS #30 day 05/11/16 Unknown Rx Ipratropium/Albuterol Sulfate 1 ampul IH Q6HRT #30 ampul.neb 05/11/16 Unknown Rx [DUONEB *Not for PRN Use*] Ipratropium/Albuterol Sulfate 1 ampul IH TIDRT #30 ampul.neb 05/11/16 05/06/16 Rx [DUONEB *Not for PRN Use*] Lidocaine Topical 5% [Xylocaine 1 applic TP TID PRN #1 tube 05/11/16 Unknown Rx Topical 5%] Moxifloxacin HCl [Vigamox 0.5%] 1 drop OD Q4H #1 05/11/16 Unknown Rx Nepafenac 0.1% [Nevanac] 1 drops OD Q4H bottle 05/11/16 Unknown Rx Pregabalin [Lyrica] 50 mg PO BID #30 capsule 05/11/16 Unknown Rx Torsemide [Demadex] 60 mg PO QAM tablet 05/11/16 Unknown Rx Venlafaxine [Effexor] 75 mg PO DAILY #30 tablet 05/11/16 Unknown Rx Zolpidem [Ambien] 5 mg PO QHS PRN #30 tablet 05/11/16 Unknown Rx amLODIPine [Norvasc] 10 mg PO DAILY #30 tablet 05/11/16 Unknown Rx guaiFENesin DM [Robitussin Dm] 10 ml PO Q6H PRN #30 oral.liqd 05/11/16 Unknown Rx methylPREDNISolone [Medrol Dose 1 mg PO DAILY #1 pack 05/11/16 Unknown Rx Nick] oxyCODONE /ACETAMINOPHEN [Percocet 1 tab PO Q6H PRN #30 tablet 05/11/16 Unknown Rx 5/325 mg] prednisoLONE ACETATE 1% [Pred 1 drops OD QID bottle 05/11/16 Unknown Rx Forte 1%] HYDROcodone/APAP 10-325 [[place] 1 each PO Q6HR PRN #30 tablet 02/04/17 Unknown Rx 10-325 mg TAB] Nitrofurantoin [place]/M-Cryst 100 mg PO Q12HR #14 capsule 02/04/17 Unknown Rx [Macrobid CAP] Allergies Allergy/AdvReac Type Severity Reaction Status Date / Time MOY Inhibitors Allergy Angioedema Verified 02/04/17 03:59 azithromycin Allergy Angioedema Verified 02/04/17 03:59 [From Zithromax Z-Nick] gabapentin AdvReac Unknown Verified 02/04/17 03:59 ED Review of Systems ROS: Stated complaint: CHEST PAIN Other details as noted in HPI Comment: All other systems reviewed and negative Other: Constitutional: No fevers chills or weight loss Eyes: No eye pain visual changes or discharge ENT: No ear pain or throat pain Neck: Denies pain Respiratory: Mild shortness of breath Cardiovascular: Positive chest pain GI: Denies abdominal pain, nausea, vomiting, diarrhea : Denies dysuria Musculoskeletal: Ongoing lumbar back pain Skin: Denies rash, lesions, erythema Neurologic: Denies headache Psychiatric: Denies suicidal ideation, hallucinations ED Past Medical Hx - Past Medical History Previous Medical History?: Yes Hx Hypertension: Yes Hx Heart Attack/AMI: No Hx Congestive Heart Failure: Yes Hx Diabetes: Yes Hx Deep Vein Thrombosis: No Hx Pulmonary Embolism: No Hx Arthritis: Yes (shoulders, hips, arms) Hx Kidney Stones: Yes Hx Asthma: Yes Hx COPD: Yes Hx Tuberculosis: Yes (at age 10) Hx HIV: No Additional medical history: VERTIGO/ /MENIERES DISEASE / SLEEP APNEA. neuropathy. on home o2, 2L via nasal cannula. High cholestrol - Surgical History Past Surgical History?: Yes Hx Coronary Stent: No Hx Pacemaker: No Hx Internal Defibrillator: No Additional Surgical History: Renal stent - Social History Smoking Status: Former Smoker - Medications Home Medications: Home Medications Medication Instructions Recorded Confirmed Last Taken Type Latanoprost 1 drop OU Q4H 05/09/16 05/09/16 Unknown History Nepafenac [Ilevro 0.3%] 1 drop OD Q4H 05/09/16 05/09/16 Unknown History Acetaminophen [Acetaminophen TAB] 650 mg PO Q4H PRN #10 tablet 05/11/16 Unknown Rx Amoxicillin/K Clav Tab [Augmentin 1 each PO Q12HR #10 tablet 05/11/16 Unknown Rx 875MG TAB] Arformoterol Nebu [Brovana Nebu] 15 mcg IH Q12HRT #30 unit 05/11/16 Unknown Rx Aspirin [Aspirin BABY CHEW TAB] 81 mg PO QDAY #30 tab.chew 05/11/16 05/07/16 Rx AtorvaSTATin [Lipitor] 40 mg PO DAILY #30 tablet 05/11/16 Unknown Rx Budesonide [Pulmicort Respules] 1 mg IH Q12HRT #30 nebu 05/11/16 Unknown Rx Carvedilol [Coreg] 25 mg PO Q12HR #60 tablet 05/11/16 Unknown Rx Fluconazole [Diflucan TAB] 100 mg PO ONCE PRN #2 tablet 05/11/16 Unknown Rx HYDROcodone/APAP 10-325 [[place] 1 each PO Q6H PRN #30 tablet 05/11/16 Unknown Rx 10-325 mg TAB] Insulin Detemir [Levemir] 40 units SUB-Q QAMDIAB #30 day 05/11/16 Unknown Rx Insulin Detemir [Levemir] 45 units SUB-Q QHS #30 day 05/11/16 Unknown Rx Ipratropium/Albuterol Sulfate 1 ampul IH Q6HRT #30 ampul.neb 05/11/16 Unknown Rx [DUONEB *Not for PRN Use*] Ipratropium/Albuterol Sulfate 1 ampul IH TIDRT #30 ampul.neb 05/11/16 05/07/16 05/06/16 Rx [DUONEB *Not for PRN Use*] Lidocaine Topical 5% [Xylocaine 1 applic TP TID PRN #1 tube 05/11/16 Unknown Rx Topical 5%] Moxifloxacin HCl [Vigamox 0.5%] 1 drop OD Q4H #1 05/11/16 05/09/16 Unknown Rx Nepafenac 0.1% [Nev[place]ac] 1 drops OD Q4H bottle 05/11/16 Unknown Rx Pregabalin [Lyrica] 50 mg PO BID #30 capsule 05/11/16 Unknown Rx Torsemide [Demadex] 60 mg PO QAM tablet 05/11/16 Unknown Rx Venlafaxine [Effexor] 75 mg PO DAILY #30 tablet 05/11/16 Unknown Rx Zolpidem [Ambien] 5 mg PO QHS PRN #30 tablet 05/11/16 Unknown Rx amLODIPine [Norvasc] 10 mg PO DAILY #30 tablet 05/11/16 Unknown Rx guaiFENesin DM [Robitussin Dm] 10 ml PO Q6H PRN #30 oral.liqd 05/11/16 Unknown Rx methylPREDNISolone [Medrol Dose 1 mg PO DAILY #1 pack 05/11/16 Unknown Rx Nick] oxyCODONE /ACETAMINOPHEN [Percocet 1 tab PO Q6H PRN #30 tablet 05/11/16 Unknown Rx 5/325 mg] prednisoLONE ACETATE 1% [Pred 1 drops OD QID bottle 05/11/16 Unknown Rx Forte 1%] HYDROcodone/APAP 10-325 [[place] 1 each PO Q6HR PRN #30 tablet 02/04/17 Unknown Rx 10-325 mg TAB] Nitrofurantoin [place]/M-Cryst 100 mg PO Q12HR #14 capsule 02/04/17 Unknown Rx [Macrobid CAP] ED Physical Exam - General Limitations: No Limitations - Other Other exam information: General: No limitations, patient is alert in no acute distress Head exam: Atraumatic, normocephalic Eyes exam: Normal appearance ENT: Moist mucous membrane, normal oropharynx Neck exam: Normal inspection, full range of motion, no meningismus nontender Respiratory exam: Clear to auscultation bilateral, no wheezes, rales, crackles. Reproducible sternal right-sided chest wall tenderness extending to right shoulder Cardiovascular: Normal rate and rhythm, normal heart sounds Abdomen: Soft, nondistended, and nontender, with normal bowel sounds, no rebound, or guarding Extremity: Full range of motion normal inspection no deformity Back: Normal Inspection, full range of motion Neurologic: Intact the foot dorsiflexion. Bilateral lower extremity weakness equal which she cannot sustain antigravity movement for very long. Decreased sensation to pinprick that increases to normal at the level of the knees bilaterally. Psychiatric: normal affect, normal mood Skin: Warm, dry, intact ED Course Vital Signs 02/04/17 02/04/17 02/04/17 03:45 03:46 04:01 Temperature 98.3 F Pulse Rate 79 89 82 Respiratory 18 15 11 L Rate Blood Pressure 161/70 Blood Pressure [Left] O2 Sat by Pulse 100 100 Oximetry 02/04/17 02/04/17 02/04/17 04:15 04:31 04:45 Temperature Pulse Rate 84 82 84 Respiratory 14 11 L 12 Rate Blood Pressure 161/70 151/74 150/77 Blood Pressure [Left] O2 Sat by Pulse 100 100 98 Oximetry 02/04/17 02/04/17 02/04/17 05:00 05:15 05:31 Temperature Pulse Rate 82 86 Respiratory 14 13 18 Rate Blood Pressure 135/77 135/77 109/71 Blood Pressure [Left] O2 Sat by Pulse 98 97 97 Oximetry 02/04/17 02/04/17 02/04/17 05:45 06:01 06:15 Temperature Pulse Rate 85 91 H 83 Respiratory 16 25 H 14 Rate Blood Pressure 165/73 165/73 165/73 Blood Pressure [Left] O2 Sat by Pulse 95 98 Oximetry 02/04/17 02/04/17 02/04/17 07:23 07:44 08:13 Temperature 98.4 F Pulse Rate 82 Respiratory 20 20 18 Rate Blood Pressure Blood Pressure 176/87 [Left] O2 Sat by Pulse 100 Oximetry 02/04/17 02/04/17 02/04/17 08:14 09:06 09:36 Temperature Pulse Rate Respiratory 18 20 20 Rate Blood Pressure Blood Pressure [Left] O2 Sat by Pulse Oximetry 02/04/17 02/04/17 13:05 13:35 Temperature Pulse Rate Respiratory 16 20 Rate Blood Pressure Blood Pressure [Left] O2 Sat by Pulse Oximetry - Reevaluation(s) Reevaluation #1: 02/04/17 07:36 I have a low suspicion for pulmonary embolism since patient has reproducible sternal and right-sided chest wall tenderness, O2 sat is 99-100% on room air, patient's d-dimer is 255. Patient has had elevated d-dimer is in the past including in April (387) and july (497) DQ and subsequent CT angiogram of both negative for pulmonary emboli. I suspect that elevation in d-dimer is chronic. CT angiogram chest will be repeated today I suspect the patient's lower extremity symptoms are related to neuropathy. However, MRI will be obtained to rule out thoracic and lumbar pathology. Patient has hypokalemia. By mouth potassium ordered Dilaudid 0.5 mg, Toradol ordered for pain in addition to Zofran 02/04/17 13:26 Patient treated with additional Dilaudid and Ativan prior to MRI. She will return he requested additional Dilaudid dose - Consultations Consultation #1: 02/04/17 14:53 Patient insisted that I call Dr. Moreau because the oxygen is irritating her nose. I obtain an ABG on room air showed a compensated respiratory acidosis with a PO2 of 60 and a sat of 89% on room air. Dr. Keane states the patient needs to continue her 2 L oxygen. We'll advise to moisturize nostrils with Vaseline or saline ED Medical Decision Making - Lab Data Result diagrams: 02/04/17 04:32 02/04/17 04:32 Lab Results 02/04/17 02/04/17 02/04/17 Range/Units 04:32 04:32 04:32 WBC 16.8 H (4.5-11.0) K/mm3 RBC 4.58 (3.65-5.03) M/mm3 Hgb 12.1 (10.1-14.3) gm/dl Hct 38.5 (30.3-42.9) % MCV 84 (79-97) fl MCH 26 L (28-32) pg MCHC 31 (30-34) % RDW 14.7 (13.2-15.2) % Plt Count 367 (140-440) K/mm3 Lymph % (Auto) 20.8 (13.4-35.0) % [place] % (Auto) 7.3 (0.0-7.3) % Eos % (Auto) 1.5 (0.0-4.3) % Baso % (Auto) 0.4 (0.0-1.8) % Lymph # 3.5 (1.2-5.4) K/mm3 [place] # 1.2 H (0.0-0.8) K/mm3 Eos # 0.2 (0.0-0.4) K/mm3 Baso # 0.1 (0.0-0.1) K/mm3 Seg Neutrophils % 70.0 (40.0-70.0) % Seg Neutrophils # 11.8 H (1.8-7.7) K/mm3 PT 12.2 (12.2-14.9) Sec. INR 0.86 L (0.87-1.13) D-Dimer 255.74 H (0-234) ng/mlDDU Sodium 139 (137-145) mmol/L Potassium 3.2 L (3.6-5.0) mmol/L Chloride 95.0 L (98-107) mmol/L Carbon Dioxide 32 H (22-30) mmol/L Anion Gap 15 mmol/L BUN 22 H (7-17) mg/dL Creatinine 0.9 (0.7-1.2) mg/dL Estimated GFR > 60 ml/min BUN/Creatinine Ratio 24 % Glucose 246 H (65-100) mg/dL POC Glucose (70-105) Calcium 9.2 (8.4-10.2) mg/dL Magnesium (1.7-2.3) mg/dL Total Bilirubin 0.20 (0.1-1.2) mg/dL AST 10 (5-40) units/L ALT 9 (7-56) units/L Alkaline Phosphatase 98 (35-129) units/L Troponin T < 0.010 (0.00-0.029) ng/mL Total Protein 8.5 H (6.3-8.2) g/dL Albumin 3.8 L (3.9-5) g/dL Albumin/Globulin Ratio 0.8 % Lipase 18 (13-60) units/L HCG, Qual (Negative) Urine Color (Yellow) Urine Turbidity (Clear) Urine pH (5.0-7.0) Ur Specific [place] (1.003-1.030) Urine Protein (Negative) mg/dL Urine Glucose (UA) (Negative) mg/dL Urine Ketones (Negative) mg/dL Urine Blood (Negative) Urine Nitrite (Negative) Urine Bilirubin (Negative) Urine Urobilinogen (<2.0) mg/dL Ur Leukocyte Esterase (Negative) Urine WBC (Auto) (0.0-6.0) /HPF Urine RBC (Auto) (0.0-6.0) /HPF U Epithel Cells (Auto) (0-13.0) /HPF Urine Bacteria (Auto) (Negative) /HPF Urine WBC Clumps /HPF Urine Mucus /HPF 02/04/17 02/04/17 02/04/17 Range/Units 04:32 07:38 08:36 WBC (4.5-11.0) K/mm3 RBC (3.65-5.03) M/mm3 Hgb (10.1-14.3) gm/dl Hct (30.3-42.9) % MCV (79-97) fl MCH (28-32) pg MCHC (30-34) % RDW (13.2-15.2) % Plt Count (140-440) K/mm3 Lymph % (Auto) (13.4-35.0) % [place] % (Auto) (0.0-7.3) % Eos % (Auto) (0.0-4.3) % Baso % (Auto) (0.0-1.8) % Lymph # (1.2-5.4) K/mm3 [place] # (0.0-0.8) K/mm3 Eos # (0.0-0.4) K/mm3 Baso # (0.0-0.1) K/mm3 Seg Neutrophils % (40.0-70.0) % Seg Neutrophils # (1.8-7.7) K/mm3 PT (12.2-14.9) Sec. INR (0.87-1.13) D-Dimer (0-234) ng/mlDDU Sodium (137-145) mmol/L Potassium (3.6-5.0) mmol/L Chloride (98-107) mmol/L Carbon Dioxide (22-30) mmol/L Anion Gap mmol/L BUN (7-17) mg/dL Creatinine (0.7-1.2) mg/dL Estimated GFR ml/min BUN/Creatinine Ratio % Glucose (65-100) mg/dL POC Glucose (70-105) Calcium (8.4-10.2) mg/dL Magnesium 1.90 (1.7-2.3) mg/dL Total Bilirubin (0.1-1.2) mg/dL AST (5-40) units/L ALT (7-56) units/L Alkaline Phosphatase (35-129) units/L Troponin T < 0.010 (0.00-0.029) ng/mL Total Protein (6.3-8.2) g/dL Albumin (3.9-5) g/dL Albumin/Globulin Ratio % Lipase (13-60) units/L HCG, Qual Negative (Negative) Urine Color (Yellow) Urine Turbidity (Clear) Urine pH (5.0-7.0) Ur Specific [place] (1.003-1.030) Urine Protein (Negative) mg/dL Urine Glucose (UA) (Negative) mg/dL Urine Ketones (Negative) mg/dL Urine Blood (Negative) Urine Nitrite (Negative) Urine Bilirubin (Negative) Urine Urobilinogen (<2.0) mg/dL Ur Leukocyte Esterase (Negative) Urine WBC (Auto) (0.0-6.0) /HPF Urine RBC (Auto) (0.0-6.0) /HPF U Epithel Cells (Auto) (0-13.0) /HPF Urine Bacteria (Auto) (Negative) /HPF Urine WBC Clumps /HPF Urine Mucus /HPF 02/04/17 02/04/17 Range/Units 08:36 09:02 WBC (4.5-11.0) K/mm3 RBC (3.65-5.03) M/mm3 Hgb (10.1-14.3) gm/dl Hct (30.3-42.9) % MCV (79-97) fl MCH (28-32) pg MCHC (30-34) % RDW (13.2-15.2) % Plt Count (140-440) K/mm3 Lymph % (Auto) (13.4-35.0) % [place] % (Auto) (0.0-7.3) % Eos % (Auto) (0.0-4.3) % Baso % (Auto) (0.0-1.8) % Lymph # (1.2-5.4) K/mm3 [place] # (0.0-0.8) K/mm3 Eos # (0.0-0.4) K/mm3 Baso # (0.0-0.1) K/mm3 Seg Neutrophils % (40.0-70.0) % Seg Neutrophils # (1.8-7.7) K/mm3 PT (12.2-14.9) Sec. INR (0.87-1.13) D-Dimer (0-234) ng/mlDDU Sodium (137-145) mmol/L Potassium (3.6-5.0) mmol/L Chloride (98-107) mmol/L Carbon Dioxide (22-30) mmol/L Anion Gap mmol/L BUN (7-17) mg/dL Creatinine (0.7-1.2) mg/dL Estimated GFR ml/min BUN/Creatinine Ratio % Glucose (65-100) mg/dL POC Glucose 126 H (70-105) Calcium (8.4-10.2) mg/dL Magnesium (1.7-2.3) mg/dL Total Bilirubin (0.1-1.2) mg/dL AST (5-40) units/L ALT (7-56) units/L Alkaline Phosphatase (35-129) units/L Troponin T (0.00-0.029) ng/mL Total Protein (6.3-8.2) g/dL Albumin (3.9-5) g/dL Albumin/Globulin Ratio % Lipase (13-60) units/L HCG, Qual (Negative) Urine Color Yellow (Yellow) Urine Turbidity Clear (Clear) Urine pH 5.0 (5.0-7.0) Ur Specific [place] 1.016 (1.003-1.030) Urine Protein <15 mg/dl (Negative) mg/dL Urine Glucose (UA) >=500 (Negative) mg/dL Urine Ketones Neg (Negative) mg/dL Urine Blood Sm (Negative) Urine Nitrite Pos (Negative) Urine Bilirubin Neg (Negative) Urine Urobilinogen < 2.0 (<2.0) mg/dL Ur Leukocyte Esterase Lg (Negative) Urine WBC (Auto) 33.0 H (0.0-6.0) /HPF Urine RBC (Auto) 1.0 (0.0-6.0) /HPF U Epithel Cells (Auto) < 1.0 (0-13.0) /HPF Urine Bacteria (Auto) 4+ (Negative) /HPF Urine WBC Clumps 2+ /HPF Urine Mucus Few /HPF - EKG Data -: EKG Interpreted by [facility] EKG shows normal: sinus rhythm (81), axis (qrs -7), QRS complexes (93), ST-T waves (no stemi/t inv) - EKG Data When compared to previous EKG there are: no significant change (compared to ) - Radiology Data Radiology results: report reviewed Chest x-ray: No acute findings CT angiogram chest: No evidence of pulmonary embolism. Mild cardiomegaly and coronary artery calcifications. MRI thoracic spine: Degenerative disc disease at T9 and T10 with a small central and right paracentral disc osteophyte producing mild canal stenosis. No cord compression. No cord lesion. No bone lesion. MRI lumbar: Degenerative disc disease at L2-3 and L4-5 - Medical Decision Making Plan to discharge patient home. Chest wall pain suggestive of costochondritis. CT angiogram negative for PE. Symptoms are right-sided and patient has a unremarkable EKG and negative cardiac enzymes 2. Patient has chronic neuropathy uncontrolled by her current Lyrica. MRI T and L-spine did not reveal any acute abnormality. Will provide additional pain medicine to take at home. Patient received Rocephin in the ED for UTI and will be continued on Macrobid at home. Cultures pending. Mild hypokalemia was treated with by mouth potassium in the ED - Differential Diagnosis UTI, costochondritis, PE, neuropathy, disc herniation Critical Care Time: No Critical care attestation.: If time is entered above; I have spent that time in minutes in the direct care of this critically ill patient, excluding procedure time. ED Disposition Clinical Impression: Morbid obesity, Hypokalemia, Chronic pain syndrome, Costochondritis, acute, UTI (urinary tract infection), Chronic obstructive pulmonary disease (COPD), Diabetic neuropathy Disposition: DC-01 TO HOME OR SELFCARE Is pt being admited?: No Does the pt Need Aspirin: No Condition: Stable Instructions: Urinary Tract Infection in Women (ED), Costochondritis (ED), Chronic Pain (ED), Chronic Obstructive Pulmonary Disease (ED), Diabetic Neuropathy (ED), Hypokalemia (ED) Additional Instructions: Take the medications as prescribed. Follow up with your doctor for further treatment. Return if symptoms worsen. Use vasoline or saline drops to moisten your nostrils while receiving oxygen therapy. Prescriptions: HYDROcodone/APAP 10-325 [[place] 10-325 mg TAB] 1 each PO Q6HR PRN #30 tablet PRN Reason: Pain Nitrofurantoin [place]/M-Cryst [Macrobid CAP] 100 mg PO Q12HR #14 capsule Referrals: PRIMARY CARE, [Primary Care Provider] - 3-5 Days Time of Disposition: 15:07
--- NOTE | 2017-02-04 08:47 | Cat Scan Report ---
FINAL REPORT PROCEDURE: CT ANGIO CHEST TECHNIQUE: Computerized tomographic angiography of the chest was performed after the IV injection of iodinated nonionic contrast including image processing. The image data was postprocessed using 2-dimensional multiplanar reformatted (MPR) and 3-dimensional (MIP and/or volume rendered) techniques. HISTORY: sob, cp COMPARISON: CTA chest 09/17/2016 FINDINGS: Heart and pericardium: Mild cardiomegaly. Coronary artery calcifications. No pericardial effusion. Thoracic aorta: Normal. Pulmonary vasculature: Normal. Lymph nodes: No enlarged thoracic lymph nodes. Lungs: Mild dependent and bibasilar subsegmental atelectasis as well as subtle subsegmental atelectasis of the upper lobes. No definite infiltrate. Pleural space: No pneumothorax or pleural fluid. Musculoskeletal structures: No significant abnormality. Upper abdominal structures: Partially included on the exam left renal atrophy. Subtle 8 millimeter right lobe thyroid nodule IMPRESSION: No evident pulmonary embolism. Mild cardiomegaly and coronary artery calcifications. Coronary artery disease risk assessment is recommended. Partially included on the exam left renal atrophy. 8 millimeter right lobe thyroid nodule. Elective thyroid ultrasound is recommended.
[2017-02-04] MEDS ORDERED: VALIUM IV ONE (09:03)
[2017-02-04] MEDS ORDERED: ATIVAN IV ONE (09:16)
[2017-02-04 09:17] LABS: Bacteria,Urine 4+ /HPF (Negative); Bilirubin,Urine NEG (Negative); Blood,Urine SM (Negative); Ketones,Urine NEG (Negative); Leukocyte Esterase,Urine LG (Negative); Mucus,Urine FEW /HPF; Nitrite,Urine POS (Negative); Protein,Urine <15 mg/dL mg/dL (Negative); Urobilinogen,Urine < 2.0 mg/dL (<2.0)
--- NOTE | 2017-02-04 12:46 | Magnetic Resonance Report ---
MRI THORACIC SPINE WITHOUT CONTRAST: 02/04/17 CLINICAL: Back pain and leg weakness and numbness. TECHNIQUE: Sagittal and axial T1 and T2, and sagittal STIR sequences on a 1.5 Meredith magnet. FINDINGS: Normal vertebral body height, alignment and disk spaces. Normal marrow signal and normal disk signal. No bone lesion. The spinal cord is normal size with normal signal. No cord lesion identified. A small right central and paracentral disc-osteophyte at T9-T10 produces partial effacement of the thecal sac and mild narrowing of the spinal canal. However, no cord compression. The rest of the discs appear intact. IMPRESSION: 1. Degenerative disc disease at T9-10 with a small central and right paracentral disc-osteophyte producing mild canal stenosis. However, no cord compression. 2. No cord lesion. 3. No bone lesion.
--- NOTE | 2017-02-04 13:14 | Magnetic Resonance Report ---
MRI LUMBAR SPINE WITHOUT CONTRAST: 02/04/17 CLINICAL: Low back pain and leg weakness and numbness. TECHNIQUE: Sagittal and axial T1 and T2, and sagittal STIR sequences on a 1.5 Meredith magnet. FINDINGS: Normal vertebral body height, alignment and disc spaces. Normal marrow signal except for mild Modic signal changes at L2-3. Decreased T2 disc signal at L2-3 and L4-5. The conus medullaris is normal and terminates at L1. L1-2: Intact. L2-3: Moderate circumferential disc bulge. L3-4: Intact. L4-5: Broad-based central disc protrusion. Bilateral facet hypertrophy, greater on the left. Mild spinal canal stenosis and moderate left neural foraminal narrowing. L5-S1: Intact. IMPRESSION: Degenerative disc disease at L2-3 and L4-5 as described above.
[2017-02-04] MEDS ORDERED: ROCEPHIN/NS 1 GM/50 ML 1 GM/50 ML BAG IV ONE (13:27)
[2017-02-04] MEDS ORDERED: cefTRIAXone 1 GM in NACL 0.9% 20 ML IV ONE (13:45)
[2017-02-04] MEDS ORDERED: BENADRYL IV ONE (14:00)
[2017-02-04 14:51] LABS: ISTAT Base Excess 7; ISTAT DEVICE 0; ISTAT HCO3 32.8; ISTAT PCO2 60.8 (35-45); ISTAT PH 7.339 (7.35-7.45); ISTAT PO2 39 (80-105); ISTAT SO2 68; ISTAT TCO2 35
[2017-02-04 14:51] LABS: ISTAT Base Excess 8; ISTAT DEVICE 0; ISTAT HCO3 33.7; ISTAT PCO2 58.4 (35-45); ISTAT PH 7.369 (7.35-7.45); ISTAT PO2 60 (80-105); ISTAT SO2 89; ISTAT TCO2 35
[2017-02-04 15:51] VITALS: BP 156/87
== END 2017-02-04 15:55 | disposition home or self-care (01) ==
LOC: ED 03:36
DX: M94.0 Chondrocostal junction syndrome [Tietze] (principal); J44.9 Chronic obstructive pulmonary disease, unspecified; G89.4 Chronic pain syndrome; E87.6 Hypokalemia; E66.01 Morbid (severe) obesity due to excess calories; E11.40 Type 2 diabetes mellitus with diabetic neuropathy, unspecified; Z79.82 Long term (current) use of aspirin; Z79.4 Long term (current) use of insulin; I10 Essential (primary) hypertension; I50.9 Heart failure, unspecified; Z87.891 Personal history of nicotine dependence; Z88.8 Allergy status to other drugs, medicaments and biological substances
CPT/HCPCS: 36415; 71010; 71275; 72146; 72148; 80048; 80053; 81001; 82803; 82962; 83690; 83735; 84484; 84703; 85025; 85379; 85610; 87076; 87086; 87186; 93005; 93010; 96365; 96375; 96376; 99285; J0696; J1170; J1200; J1885; J2060; J2405; Q9967